=== PATIENT | male | born 1960 | race Two or more races ===

== ENCOUNTER 2017-12-15 00:28 | Inpatient (IN) | payer OTHER ==
[~2017-12-15] VITALS: Ht 175.3 cm; Wt 80.0 kg
[2017-12-15 00:37] VITALS: Ht 175.3 cm; Wt 80.0 kg
[2017-12-15 01:23] LABS: BASOPHIL % 0.6 % (0-2); PLATELET COUNT 350 x10^3mcL (130-400); RED CELL DISTRIBUTION WIDTH 13.8 % (11.5-14.5)
[2017-12-15 01:47] LABS: ALBUMIN 4.2 g/dL (3.4-5.0); BILIRUBIN TOTAL 0.37 mg/dL (0.20-1.00); CALCIUM 9.9 mg/dL (8.5-10.1); CREATININE SERUM 1.9 mg/dL (0.7-1.3); FREE T4 1.65 ng/dL (0.76-1.46); TOTAL PROTEIN, SERUM 8.2 g/dL (6.4-8.2)
[2017-12-15] MEDS ORDERED: LEXAPRO10 MG PO (02:47)
[2017-12-15] MEDS ORDERED: HYDROCHLOROTHIA50 MG PO (02:48)
[2017-12-15] MEDS ORDERED: PANTOPRAZOLE SO40 M1 PO (02:48)
[2017-12-15] MEDS ORDERED: METFORMIN HCL850 MG PO (02:49)
[2017-12-15] MEDS ORDERED: ZANAFLEX CAPSULE4 MG PO (02:51)
[2017-12-15] MEDS ORDERED: HUMALOG100 U/ML SQ (02:53)
[2017-12-15] MEDS ORDERED: FLUTICASON0.05 MG/Ac (02:54)
[2017-12-15] MEDS ORDERED: NOR10 PO (02:55)
[2017-12-15] MEDS ORDERED: TRIAMTERENE AND1 TA1 PO (02:55)
[2017-12-15] MEDS ORDERED: NIASPAN500 MG PO (02:56)
[2017-12-15] MEDS ORDERED: CLARITIN10 MG PO (02:57)
[2017-12-15] MEDS ORDERED: LATUDA40 M1 PO (02:57)
[2017-12-15] MEDS ORDERED: LANTUS SOLOS100 U/M1 SQ (02:58)
[2017-12-15] MEDS ORDERED: JANUVIA100 M1 PO (02:59)
[2017-12-15] MEDS ORDERED: NATURAL IRON65 MG PO (03:00)
[2017-12-15] MEDS ORDERED: CLOPIDOGREL75 M1 PO (03:01)
[2017-12-15] MEDS ORDERED: CARVEDILOL3.125 M1 PO (03:02)
[2017-12-15] MEDS ORDERED: BENAZEPRIL HYDR20 M1 PO (03:15)
[2017-12-15] MEDS ORDERED: BENAZEPRIL HYDR40 M1 PO (03:15)
[2017-12-15] MEDS ORDERED: TRAMADOL HCL50 MG PO (03:16)
[2017-12-15] MEDS ORDERED: ISOSORBIDE MONO30 MG PO (03:16)
[2017-12-15] MEDS ORDERED: ATORVASTATIN CA40 M1 PO (03:17)
[2017-12-15] MEDS ORDERED: LINZESS290 MCG PO (03:17)
[2017-12-15] MEDS ORDERED: RESTORIL15 MG PO (03:18)
[2017-12-15] MEDS ORDERED: GOOD SENSE ASP325 MG PO (03:18)
[2017-12-15] MEDS ORDERED: MAXZIDE1 TAB PO (03:25)
[2017-12-15 03:26] LABS: PHOSPHOROUS 3.6 mg/dL (2.5-4.9)
[2017-12-15] MEDS ORDERED: IBUPROFEN400 MG PO (03:26)
[2017-12-15] MEDS ORDERED: IBU800 M2 PO (03:31)
[2017-12-15 04:13] VITALS: BP 123/73
[2017-12-15 07:26] LABS: microscopic required? NO
[2017-12-15 09:08] LABS: UA SPECIFIC GRAVITY <=1.005 (1.005-1.035); urine erythrocyte NEGATIVE (NEGATIVE)
[2017-12-15 09:14] LABS: AMPHETAMINE QUAL UR NONE DETECTED (See below)
[2017-12-15 10:00] VITALS: BP 116/63
[2017-12-15 10:45] LABS: T4(THYROXINE) 11.8 ug/dL (4.7-13.3)
[2017-12-15 13:44] VITALS: BP 121/77
[2017-12-15 17:09] VITALS: BP 126/83
[2017-12-15 21:00] VITALS: BP 109/66
[2017-12-16 05:53] VITALS: BP 144/91
[2017-12-16 07:06] LABS: CALCIUM 9.7 mg/dL (8.5-10.1); CARBON DIOXIDE 24.5 mmol/L (21-32); CHLORIDE SERUM 104 mmol/L (98-107); CREATININE SERUM 1.1 mg/dL (0.7-1.3); GFR1 > 60 mL/min; GLUCOSE SERUM 157 mg/dL (74-106); MAGNESIUM 1.9 mg/dL (1.8-2.4); PHOSPHOROUS 2.5 mg/dL (2.5-4.9); POTASSIUM SERUM 3.7 mmol/L (3.5-5.1); SODIUM SERUM 140 mmol/L (136-145)
[2017-12-16 07:11] LABS: BASOPHIL % 0.6 % (0-2); PLATELET COUNT 323 x10^3mcL (130-400); RED CELL DISTRIBUTION WIDTH 13.9 % (11.5-14.5)
[2017-12-16] MEDS ORDERED: FIBER625 MG PO (12:00)
[2017-12-16 12:30] VITALS: BP 145/88
[2017-12-16 12:40] VITALS: BP 150/81
== END 2017-12-16 13:20 | disposition home or self-care (01) | DRG 48 ==
LOC: ED 00:28 → DU 02:32
PROVIDERS: Emergency Medicine; Family Medicine; Internal Medicine Gastroenterology
PROC: 0DB68ZX Excision of Stomach, Via Natural or Artificial Opening Endoscopic, Diagnostic (ICD-10-PCS; principal; 2017-12-16 07:30)
PROC: 0DJD8ZZ Inspection of Lower Intestinal Tract, Via Natural or Artificial Opening Endoscopic (ICD-10-PCS; 2017-12-16 07:30)
DX: G90.9 Disorder of the autonomic nervous system, unspecified (principal); N17.0 Acute kidney failure with tubular necrosis; E87.8 Other disorders of electrolyte and fluid balance, not elsewhere classified; E11.65 Type 2 diabetes mellitus with hyperglycemia; I95.9 Hypotension, unspecified; I48.92 Unspecified atrial flutter; E87.1 Hypo-osmolality and hyponatremia; F33.1 Major depressive disorder, recurrent, moderate; I10 Essential (primary) hypertension; I25.10 Atherosclerotic heart disease of native coronary artery without angina pectoris; F17.210 Nicotine dependence, cigarettes, uncomplicated; R55 Syncope and collapse; K59.00 Constipation, unspecified; G89.29 Other chronic pain; F41.1 Generalized anxiety disorder; E87.6 Hypokalemia; E05.90 Thyrotoxicosis, unspecified without thyrotoxic crisis or storm; M54.9 Dorsalgia, unspecified; D64.9 Anemia, unspecified; E66.9 Obesity, unspecified; E78.5 Hyperlipidemia, unspecified; K21.9 Gastro-esophageal reflux disease without esophagitis; K64.8 Other hemorrhoids; Z95.5 Presence of coronary angioplasty implant and graft; Z68.26 Body mass index [BMI] 26.0-26.9, adult
CPT/HCPCS: 43235; 45378; 82962; 83880; 84439; 97535-GP; J1200; J1610; J1815; J2250; J2310; J3010; J3480; J3490; J7030; Q0092

== ENCOUNTER 2018-09-28 19:07 | Inpatient (IN) | payer OTHER ==
[~2018-09-28] VITALS: Ht 175.3 cm; Wt 90.9 kg
[~2018-09-28 19:07] MED LIST: ATORVASTATIN CA40 M1 PO; BENAZEPRIL HYDR20 M1 PO; BENAZEPRIL HYDR40 M1 PO; CARVEDILOL3.125 M1 PO; CLARITIN10 MG PO; CLOPIDOGREL75 M1 PO; FIBER625 MG PO; FLUTICASON0.05 MG/Ac; GOOD SENSE ASP325 MG PO; HUMALOG100 U/ML SQ; HYDROCHLOROTHIA50 MG PO; IBU800 M2 PO; IBUPROFEN400 MG PO; ISOSORBIDE MONO30 MG PO; JANUVIA100 M1 PO; LANTUS SOLOS100 U/M1 SQ; LATUDA40 M1 PO; LEXAPRO10 MG PO; LINZESS290 MCG PO; MAXZIDE1 TAB PO; METFORMIN HCL850 MG PO; NATURAL IRON65 MG PO; NIASPAN500 MG PO; NOR10 PO; PANTOPRAZOLE SO40 M1 PO; RESTORIL15 MG PO; TRAMADOL HCL50 MG PO; TRIAMTERENE AND1 TA1 PO; ZANAFLEX CAPSULE4 MG PO
[2018-09-28 20:01] LABS: BASOPHIL % 0.3 % (0-2); PLATELET COUNT 309 x10^3mcL (130-400); RED CELL DISTRIBUTION WIDTH 13.3 % (11.5-14.5)
[2018-09-28 20:22] LABS: CALCIUM 9.6 mg/dL (8.5-10.1); CARBON DIOXIDE 22.1 mmol/L (21-32); CREATININE SERUM 1.7 mg/dL (0.7-1.3); POTASSIUM SERUM 3.2 mmol/L (3.5-5.1)
[2018-09-28 20:27] LABS: ALBUMIN 3.6 g/dL (3.4-5.0); BILIRUBIN TOTAL 0.21 mg/dL (0.20-1.00); TOTAL PROTEIN, SERUM 7.3 g/dL (6.4-8.2)
[2018-09-28] MEDS ORDERED: LINZESS290 MCG (21:05)
[2018-09-28] MEDS ORDERED: JANUVIA100 M1 (21:05)
[2018-09-28 21:45] LABS: CHOLESTEROL/HDL RATIO 3.7; MAGNESIUM 2.1 mg/dL (1.8-2.4); PHOSPHOROUS 2.8 mg/dL (2.5-4.9)
[2018-09-28 21:46] LABS: microscopic required? NO
[2018-09-28 22:05] LABS: UA SPECIFIC GRAVITY 1.015 (1.005-1.035); urine erythrocyte NEGATIVE (NEGATIVE)
[2018-09-28 22:27] LABS: AMPHETAMINE QUAL UR NONE DETECTED (See below)
[2018-09-28 23:02] VITALS: BP 114/70
[2018-09-28 23:22] VITALS: Ht 175.3 cm; Wt 90.9 kg
[2018-09-29 05:51] VITALS: BP 107/64
[2018-09-29 07:32] LABS: CALCIUM 8.9 mg/dL (8.5-10.1); CREATININE SERUM 1.5 mg/dL (0.7-1.3); MAGNESIUM 2.2 mg/dL (1.8-2.4); PHOSPHOROUS 2.4 mg/dL (2.5-4.9); POTASSIUM SERUM 3.5 mmol/L (3.5-5.1)
[2018-09-29 07:40] LABS: BASOPHIL % 0.3 % (0-2); PLATELET COUNT 281 x10^3mcL (130-400); RED CELL DISTRIBUTION WIDTH 13.7 % (11.5-14.5)
[2018-09-29 09:05] VITALS: BP 115/62
[2018-09-29] MEDS ORDERED: DEPAKOTE500 MG PO (13:23)
[2018-09-29] MEDS ORDERED: ZYPREXA10 M1 PO (13:51)
[2018-09-29 15:33] VITALS: BP 129/66
== END 2018-09-29 16:14 | disposition home or self-care (01) | DRG 48 ==
LOC: ED 19:07 → DU 20:59 → MU 20:59 → DU 23:00
PROVIDERS: Emergency Medicine; ADMIT Internal Medicine
DX: G90.8 Other disorders of autonomic nervous system (principal); N17.0 Acute kidney failure with tubular necrosis; E86.0 Dehydration; E87.1 Hypo-osmolality and hyponatremia; E78.5 Hyperlipidemia, unspecified; E11.65 Type 2 diabetes mellitus with hyperglycemia; E87.6 Hypokalemia; I10 Essential (primary) hypertension; D53.9 Nutritional anemia, unspecified; Z79.4 Long term (current) use of insulin; Z68.29 Body mass index [BMI] 29.0-29.9, adult; F17.210 Nicotine dependence, cigarettes, uncomplicated; Z95.5 Presence of coronary angioplasty implant and graft; Z79.84 Long term (current) use of oral hypoglycemic drugs; E78.00 Pure hypercholesterolemia, unspecified; K21.9 Gastro-esophageal reflux disease without esophagitis
CPT/HCPCS: 82962; J7030; Q0092

== ENCOUNTER 2018-09-30 12:14 | Inpatient (IN) | payer OTHER ==
[~2018-09-30] VITALS: Ht 175.3 cm; Wt 88.5 kg
[~2018-09-30 12:14] MED LIST changes: +DEPAKOTE500 MG PO; +JANUVIA100 M1; +LINZESS290 MCG; +ZYPREXA10 M1 PO
[2018-09-30 12:23] VITALS: Ht 175.3 cm; Wt 88.5 kg
[2018-09-30 13:38] LABS: BASOPHIL % 0.4 % (0-2); PLATELET COUNT 297 x10^3mcL (130-400); RED CELL DISTRIBUTION WIDTH 13.8 % (11.5-14.5)
[2018-09-30 13:41] LABS: ALBUMIN 3.4 g/dL (3.4-5.0); BILIRUBIN TOTAL 0.24 mg/dL (0.20-1.00); CALCIUM 9.5 mg/dL (8.5-10.1); CARBON DIOXIDE 24.2 mmol/L (21-32); CREATININE SERUM 1.5 mg/dL (0.7-1.3); TOTAL PROTEIN, SERUM 7.1 g/dL (6.4-8.2)
[2018-09-30 13:51] LABS: AMPHETAMINE QUAL UR NONE DETECTED (See below)
[2018-09-30 15:36] LABS: microscopic required? NO
[2018-09-30 15:37] LABS: MAGNESIUM 2.1 mg/dL (1.8-2.4); PHOSPHOROUS 2.2 mg/dL (2.5-4.9)
[2018-09-30 15:43] LABS: CHOLESTEROL/HDL RATIO 3.9
[2018-09-30 16:10] LABS: UA SPECIFIC GRAVITY <=1.005 (1.005-1.035); urine erythrocyte NEGATIVE (NEGATIVE)
[2018-09-30 17:52] VITALS: BP 151/87
[2018-09-30 22:45] VITALS: BP 130/71
[2018-10-01 05:40] VITALS: BP 118/62
[2018-10-01 06:42] LABS: LIPASE 303 IU/L (73-393)
[2018-10-01 06:47] LABS: CALCIUM 8.8 mg/dL (8.5-10.1); CARBON DIOXIDE 28.4 mmol/L (21-32); CREATININE SERUM 1.4 mg/dL (0.7-1.3); MAGNESIUM 2.1 mg/dL (1.8-2.4); PHOSPHOROUS 3.1 mg/dL (2.5-4.9)
[2018-10-01 07:09] LABS: AMYLASE 124 U/L (25-115)
[2018-10-01 07:16] LABS: POTASSIUM SERUM 2.7 mmol/L (3.5-5.1)
[2018-10-01 07:17] LABS: BASOPHIL % 0.6 % (0-2); PLATELET COUNT 262 x10^3mcL (130-400); RED CELL DISTRIBUTION WIDTH 13.9 % (11.5-14.5)
[2018-10-01 10:12] VITALS: BP 155/91
[2018-10-01 13:02] VITALS: BP 114/71
[2018-10-01 18:22] VITALS: BP 132/78
[2018-10-01 21:02] VITALS: BP 107/77; BP 141/85
[2018-10-02 06:11] VITALS: BP 143/89
[2018-10-02 06:52] LABS: BASOPHIL % 0.5 % (0-2); PLATELET COUNT 298 x10^3mcL (130-400)
[2018-10-02 07:09] LABS: CALCIUM 9.2 mg/dL (8.5-10.1); CREATININE SERUM 1.4 mg/dL (0.7-1.3); PHOSPHOROUS 3.2 mg/dL (2.5-4.9); POTASSIUM SERUM 3.4 mmol/L (3.5-5.1)
[2018-10-02 09:09] VITALS: BP 137/89
[2018-10-02 16:39] VITALS: BP 135/76
[2018-10-02 21:17] VITALS: BP 143/84
[2018-10-02 23:42] VITALS: BP 143/84
== END 2018-10-03 01:20 | disposition short-term general hospital (02) | DRG 190 ==
LOC: ED 12:14 → DU 15:05
PROVIDERS: Emergency Medicine; ADMIT General Practice
DX: I21.4 Non-ST elevation (NSTEMI) myocardial infarction (principal); N17.0 Acute kidney failure with tubular necrosis; R56.9 Unspecified convulsions; E11.9 Type 2 diabetes mellitus without complications; G90.8 Other disorders of autonomic nervous system; F31.9 Bipolar disorder, unspecified; E78.5 Hyperlipidemia, unspecified; I10 Essential (primary) hypertension; E87.6 Hypokalemia; I25.10 Atherosclerotic heart disease of native coronary artery without angina pectoris; F17.210 Nicotine dependence, cigarettes, uncomplicated; Z79.4 Long term (current) use of insulin; Z79.82 Long term (current) use of aspirin; Z68.28 Body mass index [BMI] 28.0-28.9, adult; Z95.5 Presence of coronary angioplasty implant and graft; Z79.84 Long term (current) use of oral hypoglycemic drugs; E78.00 Pure hypercholesterolemia, unspecified; E83.39 Other disorders of phosphorus metabolism; E87.1 Hypo-osmolality and hyponatremia
CPT/HCPCS: 82962; 83880; J1642; J1644; J1953; J3480; J7030; Q0092

== ENCOUNTER 2018-10-08 14:52 | Inpatient (IN) | payer OTHER ==
[~2018-10-08] VITALS: Ht 175.3 cm; Wt 87.5 kg
[2018-10-08 16:52] LABS: BASOPHIL % 0.2 % (0-2); PLATELET COUNT 355 x10^3mcL (130-400); RED CELL DISTRIBUTION WIDTH 13.9 % (11.5-14.5)
[2018-10-08 17:23] LABS: ALBUMIN 3.5 g/dL (3.4-5.0); BILIRUBIN TOTAL 0.4 mg/dL (0.20-1.00); CALCIUM 9.7 mg/dL (8.5-10.1); CARBON DIOXIDE 19.9 mmol/L (21-32); CREATININE SERUM 1.6 mg/dL (0.7-1.3); POTASSIUM SERUM 3.9 mmol/L (3.5-5.1); TOTAL PROTEIN, SERUM 8.2 g/dL (6.4-8.2)
[2018-10-08 17:45] LABS: microscopic required? NO
[2018-10-08 17:53] LABS: urine erythrocyte NEGATIVE (NEGATIVE)
[2018-10-08 18:54] LABS: CHOLESTEROL/HDL RATIO 3.4; MAGNESIUM 2.1 mg/dL (1.8-2.4); PHOSPHOROUS 3.8 mg/dL (2.5-4.9)
[2018-10-08 19:00] LABS: FREE T4 1.46 ng/dL (0.76-1.46); FREE THYROXINE INDEX 3.7 ug/dL (1.4-4.5); T4(THYROXINE) 11.7 ug/dL (4.7-13.3)
[2018-10-08 19:05] LABS: T3 TOTAL 1.05 ng/mL
[2018-10-08 21:27] VITALS: BP 135/71
[2018-10-08 21:34] VITALS: Ht 175.3 cm; Wt 87.5 kg
[2018-10-08] MEDS ORDERED: BACLOFEN10 MG PO (22:58)
[2018-10-08] MEDS ORDERED: KROGER NIC21 MG/24 H TD (22:59)
[2018-10-08] MEDS ORDERED: LINZESS290 MCG PO (23:02)
[2018-10-08] MEDS ORDERED: FENOFIBRATE145 M1 PO (23:06)
[2018-10-08] MEDS ORDERED: LANTUS SOLOS100 U/M1 SQ (23:19)
[2018-10-08] MEDS ORDERED: GLUCOTROL10 MG PO (23:22)
[2018-10-09 06:08] VITALS: BP 151/86
[2018-10-09 06:21] LABS: BASOPHIL % 0.1 % (0-2); PLATELET COUNT 319 x10^3mcL (130-400); RED CELL DISTRIBUTION WIDTH 14.1 % (11.5-14.5)
[2018-10-09 06:55] LABS: CALCIUM 9.6 mg/dL (8.5-10.1); CARBON DIOXIDE 23.6 mmol/L (21-32); CREATININE SERUM 1.4 mg/dL (0.7-1.3); MAGNESIUM 2.2 mg/dL (1.8-2.4); PHOSPHOROUS 4.1 mg/dL (2.5-4.9); POTASSIUM SERUM 3.6 mmol/L (3.5-5.1)
[2018-10-09 09:13] VITALS: BP 122/69
[2018-10-09 12:40] VITALS: BP 134/81
[2018-10-09 17:29] VITALS: BP 154/83
[2018-10-09 20:26] VITALS: BP 126/75
[2018-10-10 05:19] VITALS: BP 146/81
[2018-10-10 06:28] LABS: PLATELET COUNT 342 x10^3mcL (130-400); RED CELL DISTRIBUTION WIDTH 13.8 % (11.5-14.5)
[2018-10-10 06:51] LABS: BASOPHIL % 0 % (0-2)
[2018-10-10 06:57] LABS: CALCIUM 9.2 mg/dL (8.5-10.1); CARBON DIOXIDE 22.7 mmol/L (21-32); CREATININE SERUM 1.5 mg/dL (0.7-1.3); MAGNESIUM 1.9 mg/dL (1.8-2.4); PHOSPHOROUS 2.8 mg/dL (2.5-4.9); POTASSIUM SERUM 3.3 mmol/L (3.5-5.1)
[2018-10-10 09:00] VITALS: BP 142/75
[2018-10-10 13:36] VITALS: BP 134/74
[2018-10-10 17:24] VITALS: BP 174/83
[2018-10-10 18:09] LABS: CALCIUM 9.4 mg/dL (8.5-10.1); CARBON DIOXIDE 22.7 mmol/L (21-32); CREATININE SERUM 1.5 mg/dL (0.7-1.3); POTASSIUM SERUM 3.7 mmol/L (3.5-5.1)
[2018-10-10 21:18] VITALS: BP 147/78
[2018-10-11] VITALS (7 sets, daily range): BP systolic 141–170; BP diastolic 77–89
[2018-10-11 06:31] LABS: CARBON DIOXIDE 24.1 mmol/L (21-32); CHLORIDE SERUM 92 mmol/L (98-107); CREATININE SERUM 1.3 mg/dL (0.7-1.3); GFR1 > 60 mL/min; GLUCOSE SERUM 196 mg/dL (74-106); POTASSIUM SERUM 3.6 mmol/L (3.5-5.1); SODIUM SERUM 128 mmol/L (136-145)
[2018-10-11 06:58] LABS: PLATELET COUNT 392 x10^3mcL (130-400); RED CELL DISTRIBUTION WIDTH 14.1 % (11.5-14.5)
[2018-10-11 07:00] LABS: BASOPHIL % 0 % (0-2)
[2018-10-11] MEDS ORDERED: LOTENSIN40 MG PO (07:19)
[2018-10-11] MEDS ORDERED: SAMSCA15 MG PO (07:20)
[2018-10-12 05:33] VITALS: BP 154/87
[2018-10-12 07:07] LABS: CREATININE SERUM 1.4 mg/dL (0.7-1.3); POTASSIUM SERUM 3.8 mmol/L (3.5-5.1)
[2018-10-12 07:08] LABS: RED CELL DISTRIBUTION WIDTH 14.3 % (11.5-14.5)
[2018-10-12 07:21] LABS: BASOPHIL % 0 % (0-2); PLATELET COUNT 451 x10^3mcL (130-400)
[2018-10-12 08:52] VITALS: BP 133/80
[2018-10-12 13:29] VITALS: BP 172/91
[2018-10-12 16:27] VITALS: BP 136/83
[2018-10-12 19:20] VITALS: BP 155/77
[2018-10-13 04:13] LABS: BASOPHIL % 0 % (0-2); PLATELET COUNT 454 x10^3mcL (130-400); RED CELL DISTRIBUTION WIDTH 14.7 % (11.5-14.5)
[2018-10-13 04:18] LABS: CALCIUM 9.2 mg/dL (8.5-10.1); CARBON DIOXIDE 26.9 mmol/L (21-32); CREATININE SERUM 1.5 mg/dL (0.7-1.3); POTASSIUM SERUM 3.1 mmol/L (3.5-5.1)
[2018-10-13 06:41] VITALS: BP 128/65
[2018-10-13 07:48] VITALS: BP 133/79
[2018-10-13 13:19] VITALS: BP 130/71
[2018-10-13 16:34] VITALS: BP 130/71
[2018-10-13 16:53] VITALS: BP 130/71
== END 2018-10-13 17:35 | disposition short-term general hospital (02) | DRG 426 ==
LOC: ED 14:52 → DU 17:51
PROVIDERS: Emergency Medicine; Internal Medicine; ADMIT Family Medicine
PROC: 0R9K3ZZ Drainage of Left Shoulder Joint, Percutaneous Approach (ICD-10-PCS; principal; 2018-10-11)
DX: E22.2 Syndrome of inappropriate secretion of antidiuretic hormone (principal); N17.0 Acute kidney failure with tubular necrosis; G93.40 Encephalopathy, unspecified; M00.9 Pyogenic arthritis, unspecified; E86.0 Dehydration; F31.9 Bipolar disorder, unspecified; E11.65 Type 2 diabetes mellitus with hyperglycemia; E78.00 Pure hypercholesterolemia, unspecified; I25.10 Atherosclerotic heart disease of native coronary artery without angina pectoris; Z98.61 Coronary angioplasty status; F17.200 Nicotine dependence, unspecified, uncomplicated; E78.5 Hyperlipidemia, unspecified; I12.9 Hypertensive chronic kidney disease with stage 1 through stage 4 chronic kidney disease, or unspecified chronic kidney disease; E11.22 Type 2 diabetes mellitus with diabetic chronic kidney disease; N18.9 Chronic kidney disease, unspecified; G89.29 Other chronic pain; E87.6 Hypokalemia; M25.519 Pain in unspecified shoulder; T50.995A Adverse effect of other drugs, medicaments and biological substances, initial encounter; Y92.89 Other specified places as the place of occurrence of the external cause
CPT/HCPCS: 82962; 83880; 84439; J2001; J2543; J3370; J7030; Q0092; Q9967

== ENCOUNTER 2018-10-25 21:54 | Emergency (ER) | payer OTHER ==
[~2018-10-25] VITALS: Ht 175.3 cm; Wt 85.7 kg
[~2018-10-25 21:54] MED LIST changes: +BACLOFEN10 MG PO; +FENOFIBRATE145 M1 PO; +GLUCOTROL10 MG PO; +KROGER NIC21 MG/24 H TD; +LOTENSIN40 MG PO; +SAMSCA15 MG PO
[2018-10-25 22:01] VITALS: Ht 175.3 cm; Wt 85.7 kg
[2018-10-25 23:58] VITALS: BP 144/97
== END 2018-10-25 23:58 | disposition home or self-care (01) ==
LOC: ED 21:54
DX: R04.0 Epistaxis (principal); I10 Essential (primary) hypertension; E11.9 Type 2 diabetes mellitus without complications; F31.9 Bipolar disorder, unspecified; E78.00 Pure hypercholesterolemia, unspecified

== ENCOUNTER 2018-10-27 09:45 | Emergency (ER) | payer OTHER ==
[~2018-10-27] VITALS: Ht 175.3 cm; Wt 85.7 kg
[2018-10-27 09:50] VITALS: Ht 175.3 cm; Wt 85.7 kg
[2018-10-27 10:22] VITALS: BP 146/82
== END 2018-10-27 10:22 | disposition home or self-care (01) ==
LOC: ED 09:45
DX: R04.0 Epistaxis (principal); I10 Essential (primary) hypertension; E11.9 Type 2 diabetes mellitus without complications; E78.00 Pure hypercholesterolemia, unspecified; F31.9 Bipolar disorder, unspecified

== ENCOUNTER 2018-11-03 18:45 | Inpatient (IN) | payer MEDICAID ==
[~2018-11-03] VITALS: Ht 175.3 cm; Wt 89.4 kg
--- NOTE | 2018-11-03 18:58 | NUR ---
PT SENT TO LOBBY TO WAIT FOR AVAILABLE BED. NO DISTRESS AND PT IS ALERT AND ORIENTED AT THIS TIME
--- NOTE | 2018-11-03 19:33 | NUR ---
PT PRESENTS TO ED WITH C/O GENERALIZED WEAKNESS, DROWSINESS, AND CONFUSION X2 DAYS. PER PT FAMILY MEMBER, PT HAS BEEN IN AND OUT OF THE HOSPITAL FOR THE LAST MONTH AFTER HAVING A CARDIAC STENT PLACED AND AN INFECTION TO L SHOULDER. PT HAS A HOME PICC LINE THAT HE HAS BEEN RECIEVING ABX THERAPY FOR ABOUT 2 WKS. PT FAMILY STATES THAT OVER THE LAST 2 DAYS HE HAS BECOME GRADUALLY MORE WEAK, DROWSY, AND CONFUSED. PT FAMILY STATES THAT HOME HEALTH NURSE CALLED TO ALERT THEM OF CRITICAL LAB RESULTS. RBC 2.37, GLUCOSE 42, CO2 19, HGB 7.7, HCT 25.5. PT HOME HEALTH NURSE TOLD THEM THAT THEY NEEDED TO COME TO THE ER SOON POSSIBLE. PT FAMILY MEMBER STATES THAT PT WILL WALK AROUND THE HOUSE AND EAT WHEN WOKEN UP AND TOLD TO, BUT WILL SLEEP OTHERWISE. PT RESTING WITH EYES CLOSED AT THIS TIME. PT NOTED WITH BILATERAL LEG SWELLING WHICH FAMILY STATES IS ABNORMAL. PT RESP EVEN AND UNLABORED AT THIS TIME WAKES EASILY TO VERBAL AND TACTILE STIMULI. BG 157 AT THIS TIME. PT PLACED ON TOOL DESIGN CHECKER.
--- NOTE | 2018-11-03 19:55 | NUR ---
PT AMBULATED WITH STEADY GAIT TO RESTROOM TO PROVIDE URINE SPECIMEN.
--- NOTE | 2018-11-03 20:29 | NUR ---
DR LOO AT BEDSIDE FOR EXAM/INTERVIEW.
--- NOTE | 2018-11-03 21:12 | NUR ---
PT RESTING IN BED WITH EYES CLOSED, BREATHS EVEN AND UNLABORED. FAMILY AT BEDSIDE.
[2018-11-03 21:27] LABS: microscopic required? NO
[2018-11-03 21:29] LABS: BASOPHIL % 0.5 % (0-2); PLATELET COUNT 373 x10^3mcL (130-400)
[2018-11-03 21:33] LABS: RED CELL DISTRIBUTION WIDTH 16.1 % (11.5-14.5)
[2018-11-03 21:43] LABS: UA SPECIFIC GRAVITY <=1.005 (1.005-1.035); urine erythrocyte NEGATIVE (NEGATIVE)
[2018-11-03 21:44] LABS: ALBUMIN 2.3 g/dL (3.4-5.0); BILIRUBIN TOTAL 0.1 mg/dL (0.20-1.00); CALCIUM 8.8 mg/dL (8.5-10.1); CREATININE SERUM 1.5 mg/dL (0.7-1.3); TOTAL PROTEIN, SERUM 7.3 g/dL (6.4-8.2)
--- NOTE | 2018-11-03 22:10 | NUR ---
PT RESTING IN BED WITH FAMILY MEMBER AT BEDSIDE FOR ASSISTANCE. NO SIGNS OF DISTRESS AT THIS TIME. EYES CLOSED WITH BREATHS EVEN AND UNLABORED.
--- NOTE | 2018-11-03 22:35 | NUR ---
PT SITTING UP ON EDGE OF BED AFTER AMBULATING TO RESTROOM. FAMILY AT BEDSIDE FOR ASSISTANCE.
--- NOTE | 2018-11-03 23:36 | NUR ---
PT RESTING IN BED AFTER USING RESTROOM WITH ASSISTANCE FROM FAMILY MEMBER. NO SIGNS OF DISTRESS AT THIS TIME.
--- NOTE | 2018-11-03 23:44 | NUR ---
REPORT GIVEN TO PATI ALONSO.
[2018-11-03 23:49] LABS: CHOLESTEROL/HDL RATIO 4.7; MAGNESIUM 1.8 mg/dL (1.8-2.4); PHOSPHOROUS 4.4 mg/dL (2.5-4.9)
[2018-11-04] VITALS (8 sets, daily range): BP systolic 101–125; BP diastolic 50–76; Ht 175.3 cm; Wt 89.4 kg
--- NOTE | 2018-11-04 | NUR ---
RECEIVED PT FROM ED VIA ALEXYS, CAME IN DUE TO WEAKNESS. AAOX4, SLOW TO RESPOND AT TIMES AND HAS MILD CONFUSION AT TIMES. ABLE TO FOLLOW COMMANDS. SPEECH IS CLEAR. NO FACIAL DROOP NOTED. NO SOB, LUNG SOUNDS CTA. DENIES CHEST PAIN/PRESSURE, SR ON THE MONITOR. DENIES ABDOMINAL DISCOMFORT. BOWEL SOUNDS ACTIVE. VOIDS. W/ SWELLING ON THE LEFT HAND AND DRY SCABS ON THE LEFT SHOULDER, SILVINO. W/ DOUBLE LUMEN PICC LINE ON THE RUE, DRESSING CDI. LIMITED ROM ON LUE, C/O 8/10 ACHING PAIN ON LUE. CANE AT BEDSIDE. RECEIVED PT FROM ED W/ ANCEF ONGOING. AT BEDSIDE. PADDED SIDE RAILS UPX2. CALL LIGHT ON REACH. HOB ELEVATED AT 30 DEG. PRIMARY NURSE PATI AT BEDSIDE FOR CONTINUITY OF CARE
[2018-11-04 00:14] LABS: FREE T4 1.46 ng/dL (0.76-1.46); FREE THYROXINE INDEX 3.4 ug/dL (1.4-4.5); T4(THYROXINE) 9.2 ug/dL (4.7-13.3)
[2018-11-04 00:36] LABS: T3 TOTAL 1.22 ng/mL
--- NOTE | 2018-11-04 00:47 | NUR ---
RANDOM BS CHECKED @ 152 MG/DL ON ADMISSION.OBTAINED CONSENT FOR BLOOD TRANSFUSION FROM -LAURA SEBASTIAN.MEDICATED WITH NORCO 7.5 MG PO REQUESTED.WILL CONTINUE TO MONITOR.
--- NOTE | 2018-11-04 02:00 | NUR ---
1 UNIT PRBC STARTED WITNESS BY ANOTHER NURSE.BLOOD # [id number].PREMEDICATED WITH TYLENOL AND BENADRYL 25 MG PO ORDERED.BP 107/60 MMHG,HR 89,O2 SAT @ 100%.TEMP 97.7F.WILL CONTINUE TO MONITOR.
[2018-11-04] MEDS ORDERED: ZESTRIL40 MG PO (02:01)
[2018-11-04] MEDS ORDERED: NOR10 PO (02:04)
[2018-11-04] MEDS ORDERED: CHLORTHALIDONE25 MG PO (02:05)
--- NOTE | 2018-11-04 02:15 | NUR ---
NO ADVERSE REACTION NOTED.TOLERATING BLOOD TRANSFUSION WELL.BP 116/60 MMHG,HR 84,O2 SAT @ 98% TEMP 98.5F.WILL CONTINUE TO MONITOR.
--- NOTE | 2018-11-04 04:27 | NUR ---
I UNIT PRBC COMPLETED.NO ADVERSE REACTION NOTED/BP 109/71 MMHG,HR 80,TEMP 97.0F,O2 SAT @ 96%.DUE MEDS GIVEN ORDERED.WILL CONTINUE TO MONITOR.
[2018-11-04 06:19] LABS: BASOPHIL % 0.8 % (0-2); PLATELET COUNT 354 x10^3mcL (130-400)
--- NOTE | 2018-11-04 06:37 | NUR ---
ANCEF 2 GM IVPB STARTED.BS THIS AM @ 119 MG/DL.NO ADVERSE LATE REACTION FROM BLOOD TRANSFUSION GIVEN EARLIER.ALL NEEDS MET.WILL CONTINUE TO MONITOR.
[2018-11-04 06:42] LABS: CARBON DIOXIDE 29.3 mmol/L (21-32); CREATININE SERUM 1.4 mg/dL (0.7-1.3); POTASSIUM SERUM 3.6 mmol/L (3.5-5.1)
[2018-11-04 06:46] LABS: RED CELL DISTRIBUTION WIDTH 15.9 % (11.5-14.5)
--- NOTE | 2018-11-04 07:30 | NUR ---
PT IS AAOX4. FOLLOWS COMMANDS, VERBALLY RESPONSIVE. NO SIGNS OF CONFUSION AT THIS TIME. RESP EVEN AND UNLABORED. LUNG SOUNDS CTA, ON R/A. TELE [address] READING NSR. ABDOMEN ROUND, NONTENDER, NONDISTENDED. BOWEL SOUNDS ACTIVE X4. SKIN CDI, PERIPHERAL PULSES PALPABLE. NO EDEMA NOTED. PICC LINE IN PLACE TO DIVYA COVERED WITH OCCLUSIVE DRESSING, CDI. NO S/S OF INFECTION NOTED. 2 PORTS FLUSHED AND PATENT. PT DENIES PAIN AT THIS TIME. CALL LIGHT WITHIN REACH. BED IN LOWEST POSITION. AT BEDSIDE.
--- NOTE | 2018-11-04 09:00 | NUR ---
REPORTED TO DEANN ONTIVEROS NP THAT PT'S HIDA SCAN WILL NEED TO BE ORDER FROM OUTSIDE. DEANN REQUESTED TO GO AHEAD WITH ORDER OF HIDA SCAN FROM OUTSIDE AND TO MAKE VELMA ALONSO AWARE. REPORTED TO VELMA SALAZAR. MARTIN STATE SHE WILL FOLLOW THROUGH WITH THE REQUEST. MADE DEANN AWARE THAT MARTIN HAD BEEN CONTACTED AND MADE AWARE.
--- NOTE | 2018-11-04 09:20 | NUR ---
DUE MEDS GIVEN. LANTUS HELD DUE TO PT NPO FOR POSSIBLE PROCEDURE. PLAVIX, ASA AND TYLENOL HELD DUE TO POSSIBLE PROCEDURE. B/P 118/77 (85), HR 92. PT STATES HIS L ARM IN UNCOMFORTABLE BUT WOULD LIKE TO WAIT BEFORE TAKING ANY PAIN MEDICATION. AT BEDSIDE. CALL LIGHT WITHIN REACH.
--- NOTE | 2018-11-04 10:15 | NUR ---
BLOOD SUGAR TAKEN DUE TO ROUTINE INSULIN BEING HELD. PT'S BS= 133. NO INSULIN NEEDED AT THIS TIME. PT ASSISTED TO BEDSIDE CHAIR. DENIES PAIN AT THIS TIME. CALL LIGHT WITHIN REACH. IN ROOM.
--- NOTE | 2018-11-04 12:48 | NUR ---
DUE MEDS GIVEN. BLOOD SUGAR 185, 3 UNITS REG INSULIN GIVEN. PT TAUGHT THAT A STOOL SAMPLE IS NEEDED AND NOT TO FLUSH ANY BOWEL MOVEMENT, TO USE HAT IN TOILET INSTEAD. PT VERBALIZED UNDERSTANDING. CALL LIGHT WITHIN REACH. AT BEDSIDE.
[2018-11-04 13:04] LABS: TOTAL IRON BINDING CAPACITY 354 ug/dL (250-450)
[2018-11-04 13:05] LABS: IRON 25 ug/dL (65-170)
[2018-11-04 13:19] LABS: RED BLOOD CELLS 2.73 M/mm3 (4.52-5.90)
--- NOTE | 2018-11-04 13:33 | NUR ---
LANTUS 30 UNITS GIVEN, WAS HELD EARLIER DUE TO PT'S NPO STATUS. DR. LAWSON AWARE LANTUS WILL BE GIVEN. PT HAS DIET ORDER AND LUNCH IS AT THE BEDSIDE. DUE MED GIVEN. PT DENIES PAIN AT THIS TIME. CALL LIGHT WITHIN REACH. BED IN LOW POSITION.
[2018-11-04] MEDS ORDERED: LINZESS290 MCG PO (14:09)
--- NOTE | 2018-11-04 14:31 | NUR ---
BLOOD TRANSFUSION STARTED. VS: 99.1 F, 85, 124/65, 20 99% ON R/A. PT EDUCATED TO REPORT SWEATING, CHILLS, CHEST PAIN, ITCHING, SOB, H/A, NEW ONSET BACK PAIN, AND N/V. AT BEDSIDE. CALL LIGHT WITHIN REACH. WILL CONTINUE TO MONITOR.
--- NOTE | 2018-11-04 14:39 | NUR ---
NORCO 7.5MG PO GIVEN FOR L SHOULDER PAIN 01/10. FLUIDS ENCOURAGED. PT HAS BLOOD INFUSING AT THIS TIME. NO C/O FEVER, CHILLS, BACK PAIN, ITCHING. AT BESIDE. CALL LIGHT WITHIN REACH.
--- NOTE | 2018-11-04 15:29 | NUR ---
REPORTED TO DR. LAWSON THAT PT HAS CARDIAC DIET, BUT ALSO NEEDS CCHO. RECEIVED ORDER FOR CARDIAC, CCHO DIET. ORDER NOTED AND CARRIED OUT.
--- NOTE | 2018-11-04 16:21 | NUR ---
PT IS SITTING IN BEDSIDE CHAIR. DENIES FEVER, CHILLS, N/V, BACK PAIN, ITCHING. NO DISCOMFORT AT THIS TIME. AT BEDSIDE. CALL LIGHT WITHIN REACH.
--- NOTE | 2018-11-04 18:00 | NUR ---
BLOOD INFUSION COMPLETED. VS: 98.7, 96, 20, 117/71, 95% ON R/A. PT DENIES BACK PAIN, ITCHING, FEVER, CHILLS, N/V. CALL LIGHT WITHIN REACH.
--- NOTE | 2018-11-04 18:33 | NUR ---
LASIX PO GIVEN FOR POST TRANSFUSION. RESP EVEN AND UNLABORED. PT DENIES FEVER, CHILLS, ITCHING, N/V, BACK PAIN. AT BEDSIDE. CALL LIGHT WITHIN REACH.
--- NOTE | 2018-11-04 18:34 | NUR ---
PT IS AAOX4. RESP EVEN AND UNLABORED. NO DISTRESS NOTED. DENIES PAIN AT THIS TIME. SEIZURE PRECAUTIONS IN PLACE. TELE [address] READING NSR. PICC LINE TOR DIVYA 2 PORTS PATENT. SITE WNL. AT BEDSIDE. CALL LIGHT WITHIN REACH. WILL ENDORES ALL CARE TO NOC RN.
--- NOTE | 2018-11-04 19:10 | NUR ---
RECEIVED PT UP ON A RECLINER WITH AT BEDSIDE,MORE AWAKE ALERT AND VERBALLY RESPONSIVE.AZ 10/10 TO L SHOULDER WITH LIMITED MOVEMENT.BP 122/69 MMHG,HR 104.PICC LINE TO DIVYA INTACT AND FLUSHES WELL.WILL CONTINUE TO MONITOR.
[2018-11-04 19:40] LABS: BASOPHIL % 0.4 % (0-2)
[2018-11-04 19:41] LABS: PLATELET COUNT 419 x10^3mcL (130-400); RED CELL DISTRIBUTION WIDTH 16.9 % (11.5-14.5)
--- NOTE | 2018-11-04 22:00 | NUR ---
PAGE [facility]ATE ZACHERY PONCE REGARDIGN PT'S CONCERN WHY GLUCOTROL 10 MG BID HOME MEDS NOT YET RESUMED AND REQUEST FOR L SHOULDER XRAY.AWAITING FOR ORDERS.
--- NOTE | 2018-11-05 04:39 | NUR ---
PT SLEPT WITH INTERVALS.BM X1 TO BLACKISH STOOL SENT TO LAB ORDERED.MEDICATED WITH NORCO 7.5 MG PO X2 FOR L SHOULDER PAIN WITH GOOD RELIEF.NO ASE NOTED FROM ANCEF IV ATB.ALL NEEDS MET.WILL CONTINUE TO MONITOR.
[2018-11-05 06:04] LABS: BASOPHIL % 0.3 % (0-2); PLATELET COUNT 385 x10^3mcL (130-400)
--- NOTE | 2018-11-05 06:21 | NUR ---
PT APPEARS MAD THIS AM ABOUT BLOOD DRAWS VERBALIZING"YOU'RE TAKING TOO MUCH BLOOD FROM ME,THAT'S WHY I WANT TO LEAVE SOON POSSIBLE.INFORMED OF BENEFITS AND ALLOWED TO DRAW FROM PICC LINE.
[2018-11-05 06:37] LABS: CALCIUM 9.3 mg/dL (8.5-10.1); CARBON DIOXIDE 27.5 mmol/L (21-32); CREATININE SERUM 1.4 mg/dL (0.7-1.3); MAGNESIUM 2.1 mg/dL (1.8-2.4); PHOSPHOROUS 3.2 mg/dL (2.5-4.9)
--- NOTE | 2018-11-05 06:42 | NUR ---
ALLOWED NURSE TO TAKE VS.NORCO 7.5 MG PO ADMINISTERED.COMFORT MEASURES RENDERED.WILL CONTINUE TO MONITOR.
[2018-11-05 06:43] VITALS: BP 134/75
[2018-11-05 07:29] LABS: RED CELL DISTRIBUTION WIDTH 16.6 % (11.5-14.5)
--- NOTE | 2018-11-05 07:30 | NUR ---
PT IS AAOX4. PT IS SITTING UP IN BEDSIDE CHAIR. TELE [address] READING NSR. LUNG SOUNDS CTA, ON R/A. NO COUGH OR SOB NOTED. BOWEL SOUNDS ACTIVE, ABDOMEN ROUND, SOFT, NONTENDER. SKIN CDI, NO EDEMA NOTED. PICC LINE TO DIVYA WITH 2 PORTS, BOTH FLUSHED AND PATENT. COVERED WITH OCCLUSIVE DRESSING. NO S/S OF INFECTION. DENIES PAIN AT THIS TIME. CALL LIGHT WITHIN REACH. BED IN LOWEST POSITION. AT BEDSIDE.
[2018-11-05 07:54] VITALS: BP 126/72
--- NOTE | 2018-11-05 09:55 | NUR ---
DR. RODRIGUEZ AND MEDICAL TEAM MET WITH PT AND DISCUSSED POC. AWAITING RESULTS OF STOOL CULTURE. IF WNL PT MAY D/C TO HOME. PT AGREED WITH POC.
--- NOTE | 2018-11-05 11:58 | NUR ---
PT RECEIVED DUE MEDS. INSULIN GIVEN FOR BS OF 371. RESP EVEN AND UNLABORED. NO DISTRESS NOTED. DENIES PAIN. AT BEDSIDE. CALL LIGHT WITHIN REACH.
[2018-11-05 12:18] VITALS: BP 119/78
--- NOTE | 2018-11-05 12:28 | NUR ---
NICODERM PATCH APPLIED TO R SHOULDER. IV FLUIDS REPLENISHED. PT DENIES PAIN OR DISCOMFORT. SISTER AT BEDSIDE VISITING. PT STATES, "I AM FEELING BETTER AFTER I SPOKE WITH MY DAUGHTER YESTERDAY." "I DON'T KNOW WHY I TRIED TO KILL MYSELF." IMPREGNATOR HELPER IN ROOM ON ONE TO ONE SUPERVISION. CALL LIGHT WITHIN REACH.
[2018-11-05 13:11] VITALS: BP 119/78
[2018-11-05] MEDS ORDERED: AMITIZA24 MC1 PO (13:14)
[2018-11-05] MEDS ORDERED: SEN PO (13:15)
--- NOTE | 2018-11-05 14:10 | NUR ---
PT DISCHARED TO HOME IN NO DISTRESS. DISCHARGE INSTRUCTIONS REVEIWED. ALL FORMS SIGNED. TELE 10 REMOVED AND GIVEN BACK TO CAR SALES REPRESENTATIVE. RX GIVEN TO PT. PICC LINE FLUSHED, 2 PORTS PATENT AND CLAMPED. VS: 98.6, 80, 20, 119/78, 96% RA. DENIES PAIN OR DISCOMFORT AT TIME OF DISCHARGED. ALL PERSONAL BELONGINGS TAKEN HOME.
== END 2018-11-05 14:06 | disposition home or self-care (01) | DRG 426 ==
LOC: ED 18:45 → DU 23:07 → EDBEDREQSVC 23:16 → DU 23:54
PROVIDERS: Emergency Medicine; Internal Medicine Gastroenterology; ADMIT Internal Medicine
DX: E22.2 Syndrome of inappropriate secretion of antidiuretic hormone (principal); N17.0 Acute kidney failure with tubular necrosis; E43 Unspecified severe protein-calorie malnutrition; D50.9 Iron deficiency anemia, unspecified; F33.9 Major depressive disorder, recurrent, unspecified; E87.6 Hypokalemia; K59.00 Constipation, unspecified; E78.5 Hyperlipidemia, unspecified; I10 Essential (primary) hypertension; I25.10 Atherosclerotic heart disease of native coronary artery without angina pectoris; E11.65 Type 2 diabetes mellitus with hyperglycemia; Z79.82 Long term (current) use of aspirin; Z79.84 Long term (current) use of oral hypoglycemic drugs; Z95.5 Presence of coronary angioplasty implant and graft
CPT/HCPCS: 82962; 84439; J0690; J1815; J7030; J7040; J7050; P9016; Q0092; Q0163

== ENCOUNTER 2018-11-26 09:03 | Inpatient (IN) | payer OTHER ==
[~2018-11-26] VITALS: Ht 175.3 cm; Wt 88.5 kg
[~2018-11-26 09:03] MED LIST changes: +AMITIZA24 MC1 PO; +CHLORTHALIDONE25 MG PO; +SEN PO; +ZESTRIL40 MG PO
[2018-11-26 09:09] VITALS: Ht 175.3 cm; Wt 88.5 kg
--- NOTE | 2018-11-26 09:32 | NUR ---
PT AWAKE AND ALERT. PT C/O GENERALIZED WEAKNESS, LOSS OF APPETITE, NAUSEA, AND EPIGASTRIC PAIN AND DISTENTION X3 DAYS. NAD. RESP E/U. PT ON FULL CM. PT AWAITING MSE IN POSITION OF COMFORT.
--- NOTE | 2018-11-26 10:02 | NUR ---
PT MEDICATED PER DOCTORS ORDERS
--- NOTE | 2018-11-26 10:04 | NUR ---
PORTABLE ULTRASOUND AT BEDSIDE
[2018-11-26 10:07] LABS: PLATELET COUNT 317 x10^3mcL (130-400)
[2018-11-26 10:10] LABS: RED CELL DISTRIBUTION WIDTH 16.9 % (11.5-14.5)
[2018-11-26 10:15] LABS: CALCIUM 9.6 mg/dL (8.5-10.1); CARBON DIOXIDE 19.2 mmol/L (21-32); POTASSIUM SERUM 3.3 mmol/L (3.5-5.1)
[2018-11-26 10:20] LABS: BILIRUBIN TOTAL 0.4 mg/dL (0.20-1.00); TOTAL PROTEIN, SERUM 7.6 g/dL (6.4-8.2)
[2018-11-26 10:49] LABS: ALBUMIN 2.6 g/dL (3.4-5.0)
--- NOTE | 2018-11-26 11:23 | NUR ---
PT RESTING ON ED GURNEY IN POSTION OF COMFORT. NAD. RESP E/U. AT BEDSIDE. PT ON FULL CM. CALL LIGHT WITHIN REACH.
[2018-11-26] MEDS ORDERED: LINZESS290 MCG PO (11:29)
[2018-11-26] MEDS ORDERED: FLUTICASON0.05 MG/Ac (11:29)
[2018-11-26] MEDS ORDERED: LISINOPRIL40 MG PO (11:29)
[2018-11-26] MEDS ORDERED: CHLORTHALIDONE25 MG PO (11:29)
[2018-11-26 11:30] LABS: BAND NEUTROPHIL 3 % (0-10); BASOPHIL 0 % (0-2); METAMYELOCTE 1 % (0-2); MONOCYTE 8 % (0-7); MYELOCYTE 1 % (0-2); SEGMENTED NEUTROPHILS 82 % (37-75)
[2018-11-26] MEDS ORDERED: NOR10 PO (11:30)
[2018-11-26] MEDS ORDERED: TRICOR145 M1 PO (11:30)
[2018-11-26] MEDS ORDERED: GLIPIZIDE ER10 M1 PO (11:30)
[2018-11-26] MEDS ORDERED: BACLOFEN10 MG PO (11:30)
[2018-11-26 11:31] LABS: rbc morphology (normal/abnorm) ABNORMAL (NORMAL)
[2018-11-26] MEDS ORDERED: PANTOPRAZOLE SO40 M1 PO (11:31)
[2018-11-26] MEDS ORDERED: NICOTINE T7 MG/24 H1 TD (11:31)
[2018-11-26] MEDS ORDERED: HUMALOG100 UNIT/1 SQ (11:32)
[2018-11-26] MEDS ORDERED: DEPAKOTE ER500 MG PO (11:32)
[2018-11-26] MEDS ORDERED: ZYP10 PO (11:32)
[2018-11-26] MEDS ORDERED: FERROUS SULFAT325 M2 PO (11:33)
[2018-11-26] MEDS ORDERED: CLOPIDOGREL75 M1 PO (11:33)
[2018-11-26] MEDS ORDERED: CARVEDILOL6.25 M1 PO (11:33)
[2018-11-26] MEDS ORDERED: LANTUS SOLOS100 U/M1 SQ (11:33)
[2018-11-26] MEDS ORDERED: GOOD SENSE ASPI81 M3 PO (11:34)
[2018-11-26] MEDS ORDERED: ISOSORBIDE MONO30 MG PO (11:34)
[2018-11-26] MEDS ORDERED: LIPITOR40 MG PO (11:34)
[2018-11-26] MEDS ORDERED: MASON NATURAL1000 IU PO (11:35)
--- NOTE | 2018-11-26 12:26 | NUR ---
PT MEDICATED PER DOCTORS ORDERS
[2018-11-26 15:22] VITALS: BP 172/86
--- NOTE | 2018-11-26 15:31 | NUR ---
RECEIVED PT FROM ER, PT ADMIT FOR PANCREATITIS, PT IS A/O X4, VERBAL RESPONSIVE, ABLE TO TELL WHAT HE NEEDS. LUNG SOUND CLEAR BILATERAL, NO COUGH, NO SOB, PT DENY ANY CHEST PAIN OR DISCOMFORT, BOWEL SOUND PRESENT ALL 4 QUADRANTS, HYPOACTIVE, DISTENTED. C/O LEFT SIDE ABD PAIN 10/10, PEDAL PULSE PRESENT BOTH FEET, NO EDEMA, PICC LINE AT RIGHT UPPER ARM, ALL ADLS ASSIST, ALL NEED MET, CALL LIGHT IN REACH, WILL CONTINUE TO MONITOR.
--- NOTE | 2018-11-26 15:41 | NUR ---
RESUMED CARE OF THIS PT FROM MR. KULKARNI. PT RECEIVED IN NO DISTRESS. AWAKE AND ALERT. DOSING ON AND OFF. FAMILY AT BEDSIDE. IVF INFUSING WELL VIA DIVYA PICC LINE, SITE WITH NO S/S OF INFECTION. FAMILY AT BEDSIDE. CALL LIGHT WITHIN REACH. WILL CONTINUE WITH PLAN OF CARE.
[2018-11-26 17:29] VITALS: BP 186/87
--- NOTE | 2018-11-26 17:58 | NUR ---
BP ELEVETED 186/86. N.P MUTUC NOTIFIED,, COREG GIVEN EARLY PER LANDSCAPE MAINTENANCE INTERNSHIP. PT ASYMPTOMATIC. RESTING IN BED. DENIES CHEST DISCOMFORT. AT BEDSIDE. CALL LIGHT WITHIN REACH.
--- NOTE | 2018-11-26 18:58 | NUR ---
C/O ABD. PAIN 10/10 MEDICATED WITH IV MORPHINE PER ORDER. FAMILY AT BEDSIDE. CALL LIGHT WITHIN REACH. WILL BE ENDORSED TO INCOMING SHIFT.
--- NOTE | 2018-11-26 19:20 | NUR ---
AOX4. MED SURG. LUNGS CLEAR ON RA. PULSES PALPABLE. NO EDEMA. BOWEL SOUNDS ACTIVE. DENIES ABD PAIN, C/O NAUSEA. VOIDS FREELY. SKIN INTACT. DENIES ALL OTHER PAIN. PICC LINE TO RUE, BOTH PORTS PATENT. NO REDNESS/SWELLING. CURRENTLY NPO. AT BEDSIDE. BED IN LOWEST POSTIION, 2 SIDE RAILS UP, CALL LIGHT IN REACH. INSTRUCTED TO CALL FOR ASSISTANCE.
[2018-11-26 20:40] VITALS: BP 145/83
--- NOTE | 2018-11-27 01:07 | NUR ---
RESTING WITH EYES CLOSED. BREATHING E/U. NO ACUTE DISTRESS NOTED. WILL CONTINUE TO MONITOR.
--- NOTE | 2018-11-27 01:12 | NUR ---
RESTING WITH EYES CLOSED. BREATHING E/U. NO ACUTE DISTRESS NOTED. WILL CONTINUE TO MONITOR.
[2018-11-27 05:43] VITALS: BP 159/85
[2018-11-27 06:26] LABS: BASOPHIL % 0.1 % (0-2); PLATELET COUNT 243 x10^3mcL (130-400)
[2018-11-27 06:38] LABS: CALCIUM 8.9 mg/dL (8.5-10.1); CARBON DIOXIDE 23.5 mmol/L (21-32); CREATININE SERUM 1.4 mg/dL (0.7-1.3); RED CELL DISTRIBUTION WIDTH 16.8 % (11.5-14.5)
[2018-11-27 06:56] LABS: POTASSIUM SERUM 2.3 mmol/L (3.5-5.1)
--- NOTE | 2018-11-27 06:58 | NUR ---
CRITICAL LAB POTASSIUM 2.[address] HERNÁNDEZ AND DR HARDIN VIA [facility]. NO ACUTE DISTRESS NOTED. WILL ENDORSE TO ONCOMING RN.
--- NOTE | 2018-11-27 07:30 | NUR ---
PT ENDORSE TO ME THIS MORNING. LAYING IN BED RESTING. AA/O X4 BREATHING EVEN AND UNLABORED ON RA. DENIES ANY CP OR PRESSURE. MEDSURG. REMAINS NPO. DENIES ANY DISCOMFORT AT THIS TIME. GEN WEAKNESS NOTED. VOIDS FREELY. PICC R ARM INTACT AND PATENT INFUSING AT 100ML/HR. NO REDNESS OR SWELLING NOTED. CALL LIGHT IN REACH. BED IN LOW POSTION. WILL WILL CONTINUE TO MONITOR.
--- NOTE | 2018-11-27 08:53 | NUR ---
PT C/O ABD PAIN 11/10 / MEDICATED PER EMAR. WILL CONTINUE TO MONITOR.
[2018-11-27 09:00] VITALS: BP 116/75; BP 159/80
[2018-11-27 10:00] VITALS: BP 159/80
--- NOTE | 2018-11-27 12:00 | NUR ---
PT LAYING IN BED RESTING. DENIES ANY PAIN OR DISCOMFORT AT THIS TIME. STATED MORPHINE HELPED WITH ABD PAIN. REMAINS NPO. WILL CONTINUE TO MONITIOR.
--- NOTE | 2018-11-27 13:27 | NUR ---
P.T. NOTES P.T. EVAL COMPLETED, REFER TO EVAL FOR DETAILS; [facility]
[2018-11-27 16:37] VITALS: BP 161/84
--- NOTE | 2018-11-27 18:37 | NUR ---
NO ACUTE CHANGES AT TIME. REMIANS NPO. NO ACUTE RESP DISTRESS OR SOB NOTED. DENIES ANY DISCOMFORT AT THIS TIME. PICC LINE TO R ARM INTACT AND PATENT/ NO REDNESS OR SWELLING NOTED. WILL ENDORSE TO INCOMING RN.
--- NOTE | 2018-11-27 19:30 | NUR ---
AOX4. MED SURG. LUNGS CLEAR ON RA. PULSES PALPABLE. NO EDEMA. BOWEL SOUNDS HYPO ACTIVE. DENIES ABD PAIN, DENIES NAUSEA. VOIDS FREELY. SKIN INTACT. DENIES ALL OTHER PAIN. PICC LINE TO RUE, BOTH PORTS PATENT. NO REDNESS/SWELLING. CURRENTLY NPO. AT BEDSIDE. BED IN LOWEST POSTIION, 2 SIDE RAILS UP, CALL LIGHT IN REACH. INSTRUCTED TO CALL FOR ASSISTANCE.
[2018-11-27 19:38] VITALS: BP 141/76
--- NOTE | 2018-11-27 21:50 | NUR ---
DR. VASQUEZ AT BEDSIDE TO ASSESS PATIENT.
[2018-11-28] VITALS (7 sets, daily range): BP systolic 130–175; BP diastolic 73–87
--- NOTE | 2018-11-28 00:34 | NUR ---
RESTING IN BED WITH EYES CLOSED. BREATHING E/U. NO ACUTE DISTRESS NOTED. AT BEDSIDE. WILL CONTINUE TO MONITOR.
--- NOTE | 2018-11-28 03:07 | NUR ---
CARE ENDORSED TO CHRISTOPHER SLAUGHTER
--- NOTE | 2018-11-28 03:08 | NUR ---
RESUMING CARE OF PT AT THIS TIME.
--- NOTE | 2018-11-28 06:30 | NUR ---
PT IS CALM AND COOPERATIVE WITH NURSING CARE. FLEET ENEMA GIVEN ORDERED AND TOLERATED WELL. PT FAMILY AT BEDSIDE AND ASSISTS WITH PT CARE. PT SLEPT THROUGHOUT THE EVENING. ALL PT NEEDS MET. NO SIGNS OF DISTRESS. WILL ENDORSE TO DAY NURSE.
--- NOTE | 2018-11-28 07:37 | NUR ---
PT ENDORSE TO ME THIS MORNING. LAYING IN BED RESTING. AT BEDSIDE. AA/O X4 BREATHING EVEN AND UNLABORED ON RA. NO ACUTE RESP DISTRESS OR SOB NOTED. REMAINS NPO/ TOLERATING WELL. MEDSURG. DENIES ANY CP OR PRESSSURE. BOWEL SOUNDS ACTIVE, HAS SMALL BM LAST NIGHT/ PASSING GAS. VOIDS FREELY. AMB. IV TO THE DIVYA PICC LINE INTACT AND PATENT. CALL LIGHT IN REACH. BED IN LOW POSTION. WILL CONTINUE PLAN OF CARE.
[2018-11-28 07:55] LABS: CALCIUM 8.4 mg/dL (8.5-10.1); CARBON DIOXIDE 21.6 mmol/L (21-32); CHLORIDE SERUM 96 mmol/L (98-107); CREATININE SERUM 1.2 mg/dL (0.7-1.3); GFR1 > 60 mL/min; GLUCOSE SERUM 339 mg/dL (74-106); LIPASE 830 IU/L (73-393); SODIUM SERUM 129 mmol/L (136-145)
[2018-11-28 08:17] LABS: PLATELET COUNT 188 x10^3mcL (130-400); RED CELL DISTRIBUTION WIDTH 17.3 % (11.5-14.5)
[2018-11-28 08:50] LABS: POTASSIUM SERUM 2.3 mmol/L (3.5-5.1)
--- NOTE | 2018-11-28 09:31 | NUR ---
NEIL DOOR CLAMPER AWARE OF K 2.3
--- NOTE | 2018-11-28 10:18 | NUR ---
PT C/O ABD PAIN, MEDICATED PER EMAR.
[2018-11-28 12:13] LABS: BAND NEUTROPHIL 1 % (0-10); BASOPHIL 0 % (0-2); MONOCYTE 4 % (0-7); PLATELET MORPHOLOGY PLATELETS DECREASED; SEGMENTED NEUTROPHILS 93 % (37-75)
[2018-11-28 12:14] LABS: rbc morphology (normal/abnorm) ABNORMAL (NORMAL)
--- NOTE | 2018-11-28 13:30 | NUR ---
Initial Nutrition Assessment: Dx: Acute Pancreatitis, Septic Joint PMHx: DM2, HTN, Psychosis, Bipolar, HDL, Anemia, Schizophrenia PSHx: Left Shoulder Surgery Labs: (11/27) Na 133L, K 2.3L, BG 156H, BUN 26H, Cre 1.4H, Lipase 2053H, H/H 9.6L/28L Meds: D5%/NaCl IV, Dulcolax, Iron, Humulin, Lantus, Lipitor, Pepcid, Zofran Diet: NPO x 2 days PO Intake: Ht: 5'9 Wt: 195 lb, 88 kg BMI: 28.8 kg/m2 (Overweight) Bed scale: ERAN IBW: 160 lb, 73 kg %IBW: 122 UBW: 187 lb Age: 58 yrs old/ Male Food Allergies: NKFA Skin: is intact. David: 20 Edema: none GI: abd is distended, hypoactive bowel sounds. Last BM: 11/28/18, formed per pt report. Pt seen earlier today w/ at bedside. Pt answered RD interview. Verified anthropometrics. reported that pt has not had anything to eat since Tuesday noon. Pt is a [place] and verbalized food preferences. RD informed kitchen staff and will note in Comput[employer]. RD also s/w AUTOMATION TECH for diet order (add CCHO to current Clear liquid diet). Per RN, put order for clear liquid diet this morning and pt was served w/ Sugar free Sprite and tea. Pt seen tolerating tea during this visit and pt verbalized interest for more solid food. Trigger received for N/V/D for >3days, poor PO intake >3 days Problem with: N/V/D/C: Problems with: Chewing: Swallowing: Current appetite: Recent wt change: %wt change: Vitamin/Supplement use: Fiber, Iron, VIT D3 Special diet at home: none Physical activity: Nutrition education: pt was notified of current Clear liquid diet and given a description of restrictions. Pt verbalized understanding. Food-drug interaction: none at this time. Estimated Nutritional Needs Based on actual body weight 88 kg Energy: 1879-2450 kcal/d (25-30 kcal/day for maintenance) Protein: 70-88 g/d (.8 - 1 g/kg - for elevated Renal lab values) Fluid: 7794-4408 ml/d (1 ml/kcal) or per doctor Nutrition Diagnosis Inadequate nutrient intake r/t altered GI function AEB Dx of acute pancreatitis and pt's c/o abd pain, poor PO intake LEGISLATIVE CORRESPONDENT. Intervention 1. Recommend adding CCHO to Clear liquid diet. 2. If/when medically appropriate, advance diet to Full Liquid CCHO diet w/ Glucerna BID. Monitor/Evaluate Goal: PO intake at least 75% of estimated needs Monitor: PO intake, Labs, GI function F/U in 2-3 days as high risk 11/30-12/01
--- NOTE | 2018-11-28 13:30 | NUR ---
1. Recommend adding CCHO to Clear liquid diet. 2. If/when medically appropriate, advance diet to Full Liquid CCHO diet w/ Glucerna BID.
--- NOTE | 2018-11-28 18:51 | NUR ---
NO ACUTE CHANGES AT THIS TIME. NO ACUTE RESP DISTRESS OR SOB NOTED. DENIES ANY CP OR PRESSURE. PICC LINE TO DIVYA PATENT AND INTACT. WILL ENDORSE TO INCOMING RN.
--- NOTE | 2018-11-28 19:31 | NUR ---
RECEIVED PT FROM PREVIOUS SHIFT. PT A/OX4. DENIES SOB ON RA. REQUESTING NORCO INSTEAD OF MORPHINE. DR HARDIN MADE AWARE. AT BEDSIDE. CALL LIGHT WITHIN REACH, BED IN LOW POSITION. WILL CONTINUE TO MONITOR.
--- NOTE | 2018-11-29 02:04 | NUR ---
PT RESTING IN NO ACUTE DISTRESS. RR EVEN AND UNLABORED. CALL LIGHT WITHIN REACH, BED IN LOW POSITION. WILL CONTINUE TO MONITOR.
[2018-11-29 05:58] VITALS: BP 138/86
[2018-11-29 06:53] LABS: CALCIUM 8.8 mg/dL (8.5-10.1); CREATININE SERUM 1.4 mg/dL (0.7-1.3)
--- NOTE | 2018-11-29 07:13 | NUR ---
ASSUMED CARE OF PATIENT. RECIEVED REPORT FROM PREVIOUS RN.
[2018-11-29 07:24] LABS: CARBON DIOXIDE 18.9 mmol/L (21-32)
[2018-11-29 08:09] VITALS: BP 149/94
[2018-11-29 08:51] LABS: PLATELET COUNT 195 x10^3mcL (130-400)
[2018-11-29 08:53] LABS: BASOPHIL % 0 % (0-2)
--- NOTE | 2018-11-29 10:48 | NUR ---
PATIENT REPORTING PATIENT HAD HISTORY OF LOW NA LEVELS AND HAS BEEN TAKING SAMSCA 15MG DAILY. RACHEL TREJO NOTIFIED.
--- NOTE | 2018-11-29 11:43 | NUR ---
KELL OBTAINED FROM FAMILY AND TAKEN DOWN TO PHARMACY. UPDATED ON NPO STATUS FOR MRI MRCP. PATIENT QUESTIONING REASON FOR NPO STATUS AND BECAME SLIGHTLY AGITATED. EDUCATED PATIENT ON PURPOSE FOR THE EXAMINATION. ALSO UPDATED.
--- NOTE | 2018-11-29 12:04 | NUR ---
REPORT FROM STUDENT RN THAT PATIENT IS REFUSING TO TAKE NORVASC AND LISINOPRIL. STATES HE ONLY TAKES THEM AT NIGHT. PATIENT ALSO INFORMED OF NPO STATUS AND MRCP PLAN TODAY. ALSO UPDATED.
--- NOTE | 2018-11-29 12:09 | NUR ---
BS 162. INSULIN HELD FOR NPO STATUS.
--- NOTE | 2018-11-29 12:36 | NUR ---
MRI CONSENT FORMED COMPLETED AND SIGNED. PLACED IN CHART.
--- NOTE | 2018-11-29 13:35 | NUR ---
RADIOLOGY CALLED FOR MRCP TIME. REPORT THAT IF TECH DOES NOT ARRIVE BY 2PM, TEST WILL BE DONE TOMORROW MORNING. NOTIFIED FAMILY. PATIENT AND FAMILY AGITATED THAT TEST COULD POSSIBLY BE PUSHED. WILL FOLLOW UP WITH RADIOLOGY TO CONFIRM TIME.
--- NOTE | 2018-11-29 14:00 | NUR ---
VISUAL EDUCATION TEACHER TO COME SOON REPORTED BY RADIOLOGY. INFORMED PATIENT AND .
--- NOTE | 2018-11-29 14:26 | NUR ---
REPORT FROM INDEPENDENT CONTRACTOR; UNABLE TO DO TODAY DUE TO STENTS. NEED MORE INFORMATION.
--- NOTE | 2018-11-29 14:46 | NUR ---
PATIENT ALARM TECHNICIAN OFFICE CONTACTED FOR STENT INFORMATION. ATTEMPTED TO CONTAT TO NOTIFY OF LATE MRI.
--- NOTE | 2018-11-29 15:33 | NUR ---
PATIENT SEEN RESTING IN BED WITH EVEN AND UNLABORED RESPIRATIONS.
--- NOTE | 2018-11-29 16:15 | NUR ---
RACHEL TREJO NOTIFIED OF STENTS IN PATIENT, UNABLE TO DO MRI. ATTEMPTED TO NOTIFIY . WAS UNABLE.
[2018-11-29 16:36] VITALS: BP 138/76
--- NOTE | 2018-11-29 17:14 | NUR ---
STENT INFORMATION OBTAINED FROM PATIENT . NOTIFIED BLOCK SEALER NEIL ON SAFETY OF MRI WITH CURRENT STENT. PHOTOCOPY OF STENT INFORMATION PLACED IN CHART.
--- NOTE | 2018-11-29 17:20 | NUR ---
PATIENT REFUSING REGULAR INSULIN COVERAGE. BS 153. PATIENT ENDORSING LOW APPETITE AND FEELS THAT HIS SUGAR WILL DROP IF HE RECIEVES INSULIN. EDUCATED PATIENT OF PURPOSE OF INSULIN COVERAGE BUT CONTINUES TO REFUSE.
--- NOTE | 2018-11-29 18:52 | NUR ---
PATIENT SEEN RESTING IN BED WITH NO COMPLAINTS OF PAIN OR DISCOMFORT. WILL ENDORSE CARE TO ONCOMING RN.
--- NOTE | 2018-11-29 19:05 | NUR ---
REPORT RECIEVED FROM DAY SHIFT RN. PATIENT WAS SEEN AND IS RESTING COMFORTBALY IN BED. BREATHING EVEN ON ROOM AIR. NO SOB OR RESP DISTRESS NOTED. A/OX4. FLAT AFFECT NOTED. DENIES CHEST PAIN. NO C/O PAIN. PICC LINE TO THE RUE INFUSING WELL. NO REDNESS OR SWELLING NOTED. EUCATED PATIENT AND FAMILY ABOUT NPO STATUS AT MIDNIGHT. COMFORT AND SAFETY MEASURES MAINTAINED. BED IS LOCKED AND IN THE LOWEST POSITION. SIDE RAILS UP X2. CALL LIGHT IS WITHIN REACH. AT BEDSIDE. INSTRUCTED PATIENT TO CALL FOR ASSISTANCE. WILL CONTINUE TO MONITOR.
[2018-11-29 21:02] VITALS: BP 152/79
--- NOTE | 2018-11-30 01:33 | NUR ---
PATIENT RESTING IN BED WITH EYES CLOSED. NO DISTRESS NOTED. BREATHING EVEN. PICC LINE TO THE RUE INFUSING WELL. AT BEDSIDE. REPORTED PATIENT VOIDED ALL OVER HIMSELF. CLEANED AND LINENS CHANGED BY GREEN MARKETING ANALYST. CALL LIGHT IS WITHIN REACH. WILL CONTINUE TO MONITOR
--- NOTE | 2018-11-30 03:18 | NUR ---
PATIENT FELT HOT. TEMP WAS ASSESSED. TEMP 100.1. COOLING MEASURES IMPLEMENTED TO BOTH AXILLAS AND FOREHEAD. WILL REASSESS. CALL LIGHT IS WITHIN REACH/
[2018-11-30 05:44] VITALS: BP 130/78
--- NOTE | 2018-11-30 06:35 | NUR ---
PATIENT SLEPT IN LONG INTERVALS THROUHGOUT THE NIGHT. NO ACUTE CHANGES NOTED. NO DISTRESS NOTED. BREATHING EVEN ON ROOM AIR. PICC LINE TO RUE INFUSING WELL. AT BEDSIDE. NPO AT THIS TIME FOR MRI IN AM. NO C/O PAIN THROUGHOUT THE NIGHT. COMFORT AND SAFETY MEASURES MAINTAINED. CALL LIGHT IS WITHIN REACH. WILL ENDORSE CARE TO DAY SHIFT RN.
[2018-11-30 06:55] LABS: PLATELET COUNT 230 x10^3mcL (130-400)
[2018-11-30 07:12] LABS: BASOPHIL % 0 % (0-2); RED CELL DISTRIBUTION WIDTH 16.8 % (11.5-14.5)
[2018-11-30 07:13] LABS: CALCIUM 8.6 mg/dL (8.5-10.1); CARBON DIOXIDE 24.2 mmol/L (21-32); CHLORIDE SERUM 102 mmol/L (98-107); CREATININE SERUM 1.3 mg/dL (0.7-1.3); GFR1 > 60 mL/min; GLUCOSE SERUM 79 mg/dL (74-106); LIPASE 459 IU/L (73-393); POTASSIUM SERUM 4.4 mmol/L (3.5-5.1); SODIUM SERUM 134 mmol/L (136-145)
--- NOTE | 2018-11-30 07:32 | NUR ---
ASSUMED CARE OF PATIENT. RECIEVED REPORT FROM NIGHT RN. PATIENT SEEN SITTING UP IN BED, NO COMPLAINTS OF PAIN OR DISCOMFORT. REPORTS "FEELING BETTER TODAY." WILL FOLLOW UP WITH RADIOLOGY REGARDING MRI SCHEDULED FOR TODAY.
--- NOTE | 2018-11-30 07:40 | NUR ---
FOLLOWED UP WITH RADIOLOGY FOR TIME OF MRI. REPORTING LICENSED AUDIOLOGIST WILL BE COMING IN AT 9-930AM. PATIENT AND INFORMED. BECAME AGITATED AND ARGUMENTATIVE DUE TO LICENSED AUDIOLOGIST TELLING THEM YESTERDAY THAT THE LICENSED AUDIOLOGIST WILL BE IN AT 8AM. ATTEMPTED TO DE-ESCALATE SITUATION, WAS MORE REASONABLE ABOUT SITUATION.
--- NOTE | 2018-11-30 08:28 | NUR ---
PO MEDICATIONS HELD FOR MRI PREP.
--- NOTE | 2018-11-30 09:10 | NUR ---
PATIENT TAKEN DOWN FOR MRI
--- NOTE | 2018-11-30 09:45 | NUR ---
RETURN FROM MRI
--- NOTE | 2018-11-30 10:13 | NUR ---
RACHEL TREJO NOTIFIED OF MRCP RESULTS.
[2018-11-30 10:30] VITALS: BP 155/81
--- NOTE | 2018-11-30 10:30 | NUR ---
PATIENTS RUE PICC LINE RED PORT NOT FLUSHING AND BACK FLOWING WITH BLOOD. PICC LINE NURSE NOTIFIED. AWAITING ETA.
--- NOTE | 2018-11-30 10:44 | NUR ---
PICC LINE NURSE CALLED. VERIFIED WITH INNER TUBE TUBER MACHINE OPERATOR NEIL, STATES PICC LINE WITH BE D/C TODAY. NEEDS TO SPEAK WITH .
--- NOTE | 2018-11-30 12:12 | NUR ---
RECIEVED ORDER FOR PICC LINE D/C. ATTEMPTING TO CONTACT PICC LINE RN FOR REMOVAL.
--- NOTE | 2018-11-30 12:24 | NUR ---
VOICEMAIL LEFT FOR PICC LINE RN.
--- NOTE | 2018-11-30 12:37 | NUR ---
CALL FROM LAB FOR VALPROIC ACID LEVEL. STATES ORDER CAN BE DONE DIRECTLY UNDER VALPROIC ACID INSTEAD OF MISC. BOARD WINDER NEIL NOTIFIED, OKAY TO CHANGE ORDER TO VALPROIC ACID.
--- NOTE | 2018-11-30 12:41 | NUR ---
PER CHARGE ACOSTA; APPROVAL FROM [facility], PICC LINE RN TO COME FOR REMOVAL OF PICC LINE.
[2018-11-30 12:58] VITALS: BP 155/81
--- NOTE | 2018-11-30 13:00 | NUR ---
PATIENT AND NOTIFIED OF PICC LINE RN ARRIVING IN ABOUT 30 MINUTES TO REMOVE PICC LINE.
--- NOTE | 2018-11-30 13:41 | NUR ---
PICC LINE REMOVED BY PICC LINE GAVIN JARAMILLO 39 CM IN LENGTH. NO BLEEDING AT PICC LINE SITE.
--- NOTE | 2018-11-30 13:48 | NUR ---
DUPLICATE VALPROIC ACID LAB LEVEL D/C PER HOUSING SPECIALIST [facility].
--- NOTE | 2018-11-30 14:01 | NUR ---
PATIENT DISCHARGED WITH ALL BELONGINGS AND AT SIDE. ALERT AND ORIENTED X4. NO COMPLAINTS OF PAIN OR DISCOMFORT. DISCHARGE INSTRUCTION AND TEACHING PROVIDED. ID BANDS REMOVED. JOSE LUIS RETURNED TO PATIENT. DROPPED OFF AT DISCHARGE OFFICE.
== END 2018-11-30 14:00 | disposition home or self-care (01) | DRG 720 ==
LOC: ED 09:03 → MU 13:32
PROVIDERS: Emergency Medicine; Internal Medicine; ADMIT General Practice
DX: A41.9 Sepsis, unspecified organism (principal); E43 Unspecified severe protein-calorie malnutrition; K85.90 Acute pancreatitis without necrosis or infection, unspecified; M00.012 Staphylococcal arthritis, left shoulder; F25.0 Schizoaffective disorder, bipolar type; B95.7 Other staphylococcus as the cause of diseases classified elsewhere; E11.9 Type 2 diabetes mellitus without complications; E78.00 Pure hypercholesterolemia, unspecified; E87.6 Hypokalemia; E78.5 Hyperlipidemia, unspecified; I25.10 Atherosclerotic heart disease of native coronary artery without angina pectoris; I10 Essential (primary) hypertension; Z95.5 Presence of coronary angioplasty implant and graft
CPT/HCPCS: 74181; 82962; J0690; J1815; J1885; J2270; J2405; J2543; J3480; J3490; J7030; J7042; Q0092

== ENCOUNTER 2019-06-19 14:24 | Inpatient (IN) | payer OTHER ==
[~2019-06-19] VITALS: Ht 175.3 cm; Wt 92.5 kg
[~2019-06-19 14:24] MED LIST changes: +CARVEDILOL6.25 M1 PO; +DEPAKOTE ER500 MG PO; +FERROUS SULFAT325 M2 PO; +GLIPIZIDE ER10 M1 PO; +GOOD SENSE ASPI81 M3 PO; +HUMALOG100 UNIT/1 SQ; +LIPITOR40 MG PO; +LISINOPRIL40 MG PO; +MASON NATURAL1000 IU PO; +NICOTINE T7 MG/24 H1 TD; +TRICOR145 M1 PO; +ZYP10 PO
[2019-06-19 14:40] VITALS: Ht 175.3 cm; Wt 92.5 kg
--- NOTE | 2019-06-19 15:41 | NUR ---
PT ALSO C/O MUQ PAIN PT STS HX PANCREATITIS AND STS "I THINK IT IS ACTING UP" PT DENIES ANY N/V EPISODES
--- NOTE | 2019-06-19 15:41 | NUR ---
PT C/O HEADACHE X2 DAYS WITH HIGH BLOOD PRESSURE, PT REPORTS +COMPLIANCE WITH AMLODIPINE 5MG DAILY AND LISINOPRIL 20 MG BID, PT STS "I EVEN TOOK AN EXTRA 20MG LISINOPRIL TODAY AND IT WENT FROM 200 TOP NUMBER TO 180'S" PT DENIES ANY DIZZINESS, LOC, RECENT TRAUMA AND/OR INJURY, CHEST PAIN, N/V, AND/OR VISION PROBLEMS, PT AAOX4, NO NEURO DEFICITS NOTED AT THIS TIME, RESPS E/U, SKIN PINK DRY WARM INTACT, NO DEFORMITIES NOTED, PT IN NAD ON FULL CM, NSR, WITH SPOUSE AT BEDSIDE AWAITING MSE
--- NOTE | 2019-06-19 15:56 | NUR ---
MD ARITA AT BEDSIDE PERFORMING MSE
--- NOTE | 2019-06-19 16:59 | NUR ---
PT REQUESTING PAIN MEDICATION FOR 10/10 ABD PAIN, MD ARITA MADE AWARE
[2019-06-19 17:15] LABS: BASOPHIL % 0.3 % (0-2); PLATELET COUNT 259 x10^3mcL (130-400); RED CELL DISTRIBUTION WIDTH 15.3 % (11.5-14.5)
[2019-06-19 17:25] LABS: CALCIUM 9.4 mg/dL (8.5-10.1); CARBON DIOXIDE 28.8 mmol/L (21-32); CHLORIDE SERUM 101 mmol/L (98-107); CREATININE SERUM 1.3 mg/dL (0.7-1.3); GFR1 > 60 mL/min; GLUCOSE SERUM 128 mg/dL (74-106); POTASSIUM SERUM 3.9 mmol/L (3.5-5.1); SODIUM SERUM 137 mmol/L (136-145)
[2019-06-19 17:32] LABS: LIPASE 4901 IU/L (73-393)
--- NOTE | 2019-06-19 17:39 | NUR ---
PORTABLE US AT BEDSIDE, US IN PROGRESS
--- NOTE | 2019-06-19 17:48 | NUR ---
PT MEDICATED PER MD ORDER AND EMAR, VSS, NSR ON CM
--- NOTE | 2019-06-19 18:38 | NUR ---
EKG IN PROGRESS
--- NOTE | 2019-06-19 18:38 | NUR ---
LABETOLOL HELD D/T PT BP, MD ARITA MADE AWARE
--- NOTE | 2019-06-19 18:45 | NUR ---
I ATTEMPTED TO OBTAIN IV ACCESS, UNSUCCESSFUL, PT REQUESTING A DIFFERENT NURSE TO ATTEMPT IV ACCESS. PRIMARY RN DOLORES MADE AWARE
[2019-06-19] MEDS ORDERED: VENTOLIN H0.09 MG/A1 (18:53)
[2019-06-19] MEDS ORDERED: KLOR-CON M2020 MEQ PO (18:53)
[2019-06-19] MEDS ORDERED: LASIX40 MG PO (18:55)
[2019-06-19] MEDS ORDERED: GLIPIZIDE10 M2 PO (18:56)
[2019-06-19] MEDS ORDERED: NOR10T PO (18:57)
[2019-06-19] MEDS ORDERED: FENOFIBRATE145 M1 PO (18:58)
[2019-06-19 19:05] LABS: ALBUMIN 3.3 g/dL (3.4-5.0); BILIRUBIN DIRECT 0.18 mg/dL (0.0-0.2); BILIRUBIN TOTAL 0.39 mg/dL (0.20-1.00); TOTAL PROTEIN, SERUM 7.7 g/dL (6.4-8.2)
--- NOTE | 2019-06-19 19:05 | NUR ---
REPORT GIVEN TO BOYD ALBRECHT RN WHO IS RESUMING CARE OF PT AT THIS TIME
[2019-06-19] MEDS ORDERED: DEPAKOTE500 MG PO (19:10)
--- NOTE | 2019-06-19 19:13 | NUR ---
PT REPORT RECEIVED FROM DOLORES ALONSO TO ASSUME PT CARE. PT RESTING IN A POSITION O COMFORT, AOX4, RESP EVEN AND UNLABORED, NO ACUTE DISTRESS NOTED.
--- NOTE | 2019-06-19 19:15 | NUR ---
INITIATED FLUID BOLUS, PT C/O PAIN TO IV SITE. FLUSHED IV WITH NO RESISTANCE, NO S/S INFILTRATION NOTED. PT REQUSTING THAT DR ARITA ASSESS IV FOR PATENCY. DR ARITA AT BEDSIDE, REPORTS NO SWELLING OR INFILTRATION. IV FLUIDS INITIATED AGAIN.
[2019-06-19] MEDS ORDERED: BASAGLAR K100 UNIT/1 (19:22)
[2019-06-19] MEDS ORDERED: NOR5 PO (19:24)
--- NOTE | 2019-06-19 20:04 | NUR ---
IV REMOVED DUE TO INFILTRATION IN THE L AC, IV ESTABLISHED TO THE R WRIST, FLUSHED EASILY WITH NO S/S INFILTRATION NOTED. GOOD BLOOD RETURN NOTED.
--- NOTE | 2019-06-19 20:27 | NUR ---
PT EDUCATED THAT PT IS NPO AFTER REQUESTING WATER AND FOOD FOR PT. VERBALIZED UNDERSTANDING.
[2019-06-19 20:34] LABS: CHOLESTEROL/HDL RATIO 7.7
--- NOTE | 2019-06-19 20:52 | NUR ---
PT RESTING WITH EYES CLOSED AT THIS TIME, RESP EVEN AND UNLABORED, NO ACUTE DISTRESS NOTED.
--- NOTE | 2019-06-19 22:47 | NUR ---
PT REPORT CALLED TO MIGNON ALONSO TO ASSUME PT CARE.
--- NOTE | 2019-06-19 22:50 | NUR ---
PT TRANSFERRED TO [facility] BY [facility] [place] BY BESSIE ALONSO AND IMMANUEL EMT. PT ON FULL CM FOR TRANSPORT. PT AOX4, RESP EVEN AND UNLABORED, NO ACUTE DISTRESS NOTED. PT ACCEPTED BY MIGNON ALONSO TO ASSUME PT CARE. PT AMBULATED FROM [facility] [place] TO BED WITHOUT INCIDENT. CARE ENDORSED TO RN.
--- NOTE | 2019-06-19 22:55 | NUR ---
PT ARRIVED FROM ER ACCOMPANIED BY NURSE. PT LOOKS TO BE IN NO ACUTE DISTRESS AT THIS TIME. CURRENT VITAL SIGNS ARE BP: 150/107, MAP: 116, HR: 72, TEMP: 97.7 ORAL, O2: 97% ON ROOM AIR, RR: 18. PT COMPLAINING OF 7/10 PAIN TO THE ABD, NONRADIATING SHARP PAIN. PT IS AWAKE, ALERT AND ORIENTED X4. LUNG SOUNDS CLEAR BILATERALLY ON ROOM AIR AND RESPIRATIONS EVEN AND UNLABORED. PULSES PALPABLE, TRACE EDEMA NOTED TO BLE. BOWEL SOUNDS ACTIVE X4 QUADRANTS, LAST BM 06/17. PT AMBULATORY WITH CANE AT HOME. PT VOIDS FREELY AND DENIES ANY DYSURIA. PT STATES HAVING FALLEN IN THE PAST 2 MONTHS AT HOME DUE TO UNBALANCE. ORIENTED PT TO ROOM AND UNIT. CALL LIGHT WITHIN REACH, BED IN LOWEST POSITION, WILL CONTINUE TO MONITOR.
[2019-06-19 23:55] VITALS: BP 150/107
[2019-06-20] VITALS (7 sets, daily range): BP systolic 142–170; BP diastolic 84–90
--- NOTE | 2019-06-20 00:30 | NUR ---
ATTEMPTED TO MEDICATE PT ACCORDING TO EMAR WITH ZYPREXA. PT STATED THAT HE NO LONGER TAKES THIS MEDICATION AND HIS PCP DISCONTINUED THIS MEDICATION ABOUT A MONTH AGO AND STATED THAT HE DOES NOT WISH TO TAKE THE MEDICATION AT THIS TIME. WILL NOTIFY
--- NOTE | 2019-06-20 02:17 | NUR ---
PT IS LAYING DOWN IN BED WITH HOB UP AND EYES CLOSED. RESPIRATIONS EVEN AND UNLABORED ON ROOM AIR. IV SITE PATENT WITH NO SIGNS OF ERYTHEMA OR SWELLING WITH IV FLUIDS INFUSING. AT BEDSIDE. CALL LIGHT WITHIN REACH. WILL CONTINUE TO MONITOR.
--- NOTE | 2019-06-20 04:25 | NUR ---
PT COMPLAINING OF 8/10 PAIN TO THE ABD. MEDICATED PT ACCORDING TO EMAR. PT AND FAMILY MEMBER ASKING ABOUT PT'S HOME MEDICATION DEPAKOTE AND GLIPIZIDE IF THE MEDICATION WILL BE CONTINUED. ASKED DRPam ABOUT MEDICATIONS AND RECOMMENDED HOLDING MEDICATIONS AT THIS TIME. RELAYED INFORMATION TO PT AND FAMILY MEMBER. WILL CONTINUE TO MONITOR.
--- NOTE | 2019-06-20 06:15 | NUR ---
SENT [facility]A DOWN TO LAB
[2019-06-20 06:27] LABS: microscopic required? NO
--- NOTE | 2019-06-20 06:40 | NUR ---
CHECKED PT BLOOD SUGAR AND IS 65, RECHECKED BLOOD SUGAR AND IS 63. PT IS NPO AT THIS TIME DUE TO ADMITTING DIAGNOSIS OF PANCREATITIS. NOTIFIED DR. STACY AND INSTRUCTED TO GIVE D50 IV AND WILL CHANGE MAINTENANCE FLUIDS. PT HAS TREMORS TO HANDS, PT STATES IT IS A SIDE EFFECTS FROM MEDICATION BUT PT STATES THAT HE FEELS LIKE HIS BLOOD SUGAR IS LOW AT THIS TIME. WILL RECHECKED BLOOD SUGAR IN 15 MINUTES.
[2019-06-20 06:51] LABS: BASOPHIL % 0.4 % (0-2); PLATELET COUNT 218 x10^3mcL (130-400)
[2019-06-20 06:56] LABS: CALCIUM 8.5 mg/dL (8.5-10.1); CHLORIDE SERUM 104 mmol/L (98-107); CREATININE SERUM 1.1 mg/dL (0.7-1.3); GFR1 > 60 mL/min; GLUCOSE SERUM 63 mg/dL (74-106); MAGNESIUM 1.7 mg/dL (1.8-2.4); PHOSPHOROUS 2.9 mg/dL (2.5-4.9); POTASSIUM SERUM 3.1 mmol/L (3.5-5.1); SODIUM SERUM 139 mmol/L (136-145)
--- NOTE | 2019-06-20 07:00 | NUR ---
REPEATED BLOOD SUGAR AND IS 175 AT THIS TIME. PT LOOKS TO BE IN NO ACUTE DISTRESS AT THIS TIME. WILL CONTINUE TO MONITOR.
--- NOTE | 2019-06-20 07:05 | NUR ---
WILL BE CARING FOR PT UNTIL DAY SHIFT NURSE COMES TO TAKE OVER CARE OF PT
[2019-06-20 07:08] LABS: RED CELL DISTRIBUTION WIDTH 15.3 % (11.5-14.5)
[2019-06-20 08:17] LABS: UA SPECIFIC GRAVITY <=1.005 (1.005-1.035); urine erythrocyte NEGATIVE (NEGATIVE)
[2019-06-20 09:10] LABS: AMPHETAMINE QUAL UR NONE DETECTED (See below)
--- NOTE | 2019-06-20 10:15 | NUR ---
PT COMPLAINING OF 10/10 PAIN TO THE ABD. WILL MEDICATE ACCORDING TO EMAR.
[2019-06-20 10:42] LABS: LIPASE 2465 IU/L (73-393)
--- NOTE | 2019-06-20 10:45 | NUR ---
ENDORSE TO NURSE CASEY
--- NOTE | 2019-06-20 11:00 | NUR ---
RECEIVED PT FROM GAVIN CROW. PT AA/OX4, LAYING IN BED. DENIES ABD. PAIN AT THIS TIME. NO S/S OF ACUTE DISTRESS. DENIES N/V. NO SOB ON ROOM AIR. IV WNL TO RIGHT WRIST PATENT AND FLUSHES WELL. IVF FLOWING. NO DIZZINESS. NO SWEATING NOTED. TREMOR NOTED. NO ROWAN. INSTRUCTED TO USE CALL LIGHT TO CALL FOR ASSISTANCE PRN. PT VERBALIZED UNDERSTANDING. NPO EXCEPT MEDS. BED IN LOW POSITION. CALL LIGHT WITHIN REACH. WILL CONT. TO MONITOR.
--- NOTE | 2019-06-20 17:10 | NUR ---
PT BP ELEVATED, NSR ON TELE. GIVEN IV BP MED, SEE MAR. NSR ON TELE AFTER IV MEDICATION. NO CHEST PAIN. NO ROWAN. NO DIZZINESS. AA/OX4. LAYING IN BED. PT CALM/COOPERATIVE. IV WNL, IVF FLOWING. BED IN LOW POSITION. CALL LIGHT WITHIN REACH. WILL CONT. TO MONITOR.
--- NOTE | 2019-06-20 18:13 | NUR ---
BP 170/84 (112), HR 85. PHYSICIAN AWARE. AWAITING NEW ORDERS. PT DENIES CHEST PAIN. NO SOB ON ROOM AIR. NO S/S OF ACUTE DISTRESS. NO N/V. CALM/COOPERATIVE. DENIES PAIN AT THIS TIME. IV WNL TO RFA, IVF FLOWING. BED IN LOW POSITION. CALL LIGHT WITHIN REACH. WILL CONT. TO MONITOR.
--- NOTE | 2019-06-20 18:46 | NUR ---
BP 153/89. DECREASING WITHOUT ADDITIONAL BP MED. NO CHEST PAIN. NO C/O PAIN. NO SOB ON ROOM AIR. CALM/COOPERATIVE. IV WNL, IVF FLOWING. AT BEDSIDE. NO CHEST PAIN. BED IN LOW POSITION. CALL LIGHT WITHIN REACH. WILL ENDORSE TO ONCOMING SHIFT.
--- NOTE | 2019-06-20 19:15 | NUR ---
PT RECEIVED A/O X4, ABLE TO MAKE NEEDS KNOWN. SPOUSE AT BEDSIDE. TELE #4, PT DENIES HAVING ANY CP/PRESSURE. PULSES PALPABLE, NO EDEMA PRESENT. BREATHING IS EVEN AND UNLABORED ON RA, NO RESP DISTRESS NOTED. ABD SOFT AND NONDISTENDED, DENIES N/V. VOIDS FREELY, BRP. MILD GENERALIZED WEAKNESS, AMBULATORY WITH STEADY GAIT, PT USES CANE BASELINE. SKIN IS WARM AND DRY, INTACT. PT DENIES HAVING ANY PAIN AT THIS TIME. NO ACUTE DISTRESS NOTED. IVF INFUSING WELL TO RW, SITE WNL. BED IN LOWEST SETTING, SIDE RAILS UP X2, CALL LIGHT WITHIN REACH. WILL CONT TO MONITOR.
--- NOTE | 2019-06-20 21:43 | NUR ---
PT C/O 10/10 ABD PAIN, PRN MORPHINE IVP GIVEN ORDERED. NO ACUTE DISTRESS NOTED. WILL CONT TO MONITOR.
--- NOTE | 2019-06-20 22:20 | NUR ---
PT AND PT'S SPOUSE REFUSING SCHEDULED DOSE OF LAMICTAL. PT'S SPOUSE CONCERNED OF SIDE EFFECTS OF MEDICATION AND REQUESTING TO SPEAK WITH PHYSICIAN. EDUCATED PT ON S/S OF MEDICATION, PT AND SPOUSE INSISTENT ABOUT SPEAKING WITH PHYSICIAN. DR ZARAGOZA MADE AWARE, PER RESIDENT, WILL ENDORSE TO DAY TEAM.
--- NOTE | 2019-06-21 04:44 | NUR ---
PT SLEPT WELL THROUGHOUT THE EVENING. BREATHING IS EVEN AND UNLABORED, NO RESP DISTRESS NOTED. NO S/S OF PAIN OBSERVED AT THIS TIME. IVF INFUSING WELL, SITE WNL. NO ACUTE CHANGES ENCOUNTERED DURING SHIFT. ALL NEEDS MET AND ANTICIPATED. SPOUSE AT BEDSIDE. CALL LIGHT WITHIN REACH. WILL ENDORSE CARE TO AM NURSE.
[2019-06-21 05:28] VITALS: BP 160/90
--- NOTE | 2019-06-21 06:50 | NUR ---
PT C/O 10/10 ABD PAIN, PRN MORPHINE GIVEN ORDERED. PT AND PT'S SPOUSE REQUESTING TO SPEAK WITH PHYSICIAN, DR BREWSTER CALLED AND MADE AWARE. PER DR BREWSTER, WILL NOTIFY PT'S RESIDENT. WILL ENDORSE CARE TO AM NURSE.
[2019-06-21 07:31] LABS: BASOPHIL % 0.5 % (0-2); PLATELET COUNT 233 x10^3mcL (130-400)
[2019-06-21 07:49] LABS: RED CELL DISTRIBUTION WIDTH 14.7 % (11.5-14.5)
[2019-06-21 07:57] LABS: CALCIUM 9.3 mg/dL (8.5-10.1); CARBON DIOXIDE 24.7 mmol/L (21-32); CHLORIDE SERUM 98 mmol/L (98-107); CREATININE SERUM 1.1 mg/dL (0.7-1.3); GFR1 > 60 mL/min; GLUCOSE SERUM 223 mg/dL (74-106); POTASSIUM SERUM 3.1 mmol/L (3.5-5.1); SODIUM SERUM 135 mmol/L (136-145)
[2019-06-21 07:59] LABS: LIPASE 1961 IU/L (73-393)
--- NOTE | 2019-06-21 08:12 | NUR ---
RECEIVED PATIENT FROM GAVIN GREGORY I. PATIENT OBSERVED SEATED UP TO BED, EATING AND TOLERATING BREAKFAST TRAY. AT BEDSIDE AND UPSET FROM LAST NIGHT THAT SHE WAS UNABLE TO SPEAK WITH UNIT CONTROL CLERK RESIDENT. STATES THAT SHE WANTS AN EXPLAINATION TO WAY PATIENT IS NOW PRESCRIBED LAMICTAL. LOST CHARGE CARD CLERK MACKENZIE IN TO SPEAK WITH BUT CONTINUES TO BE UPSET. RACHEL MANN STATES SHE WILL INFORM DR ZACARIAS TO SPEAK WITH HER HE WAS THE ATTENDING PHYSICIAN LAST NIGHT ALONG WITH DR ZARAGOZA. CALL LIGHT IN REACH AT THIS TIME.
[2019-06-21 08:30] VITALS: BP 149/71
--- NOTE | 2019-06-21 12:05 | NUR ---
DR ZACARIAS IN TO SPEAK WITH PATIENT AND FAMILY. STATES THAT PATIENT MAY BE DISCHARGED TOMORROW DEPENDING ON HOW PATIENT TOLERATES DIET WELL LIPASE LEVELS. STATES THE LIPASE LEVELS WITH GRADUALLY DECREASE OVER TIME. PATIENT AND AGREE WITH PLAN. CALL LIGHT IN REACH.
[2019-06-21 13:02] VITALS: BP 170/85
[2019-06-21 17:03] VITALS: BP 144/80
--- NOTE | 2019-06-21 17:26 | NUR ---
PATIENT SEATED UP TO BED. NO COMPLAINTS AT THIS TIME. WILL CONTINUE TO MONITOR HOW PATIENT WILL TOLERATE DINNER TONIGHT. CALL LIGHT IN REACH.
--- NOTE | 2019-06-21 19:00 | NUR ---
PATIENT SEATED AT BEDSIDE, STATES THAT HE STILL HAS MODERATE STOMACH PAIN. PRN MORPHINE 2 MG IV GIVEN. WILL ENDORSE TO ONCOMING NURSE, CALL LIGHT IN REACH. AT BEDSIDE.
--- NOTE | 2019-06-21 19:20 | NUR ---
PT RECEIVED A/O X4, ABLE TO MAKE NEEDS KNOWN. SPOUSE AT BEDSIDE. TELE #4, PT DENIES HAVING ANY CP/PRESSURE. PULSES PALPABLE, NO EDEMA PRESENT. BREATHING IS EVEN AND UNLABORED ON RA, NO RESP DISTRESS NOTED. ABD SOFT AND ROUND, DENIES N/V. VOIDS FREELY, BRP. MILD GENERALIZED WEAKNESS, AMBULATORY WITH STEADY GAIT, PT USES CANE BASELINE. SKIN IS WARM AND DRY, INTACT. PT DENIES HAVING ANY PAIN AT THIS TIME. NO ACUTE DISTRESS NOTED. IVF INFUSING WELL TO RW, SITE WNL. BED IN LOWEST SETTING, SIDE RAILS UP X2, CALL LIGHT WITHIN REACH. WILL CONT TO MONITOR.
[2019-06-21 20:49] VITALS: BP 153/79
[2019-06-21 21:06] VITALS: BP 153/79
--- NOTE | 2019-06-22 01:18 | NUR ---
PT C/O 10/10 ABD PAIN, PRN MORPHINE IVP GIVEN ORDERED. NO ACUTE DISTRESS NOTED. WILL CONT TO MONITOR.
[2019-06-22 05:38] VITALS: BP 128/77
--- NOTE | 2019-06-22 06:30 | NUR ---
PT SLEPT WELL THROUGHOUT THE EVENING. SPOUSE AT BEDSIDE. BREATHING IS EVEN AND UNLABORED, NO RESP DISTRESS NOTED. PT C/O 04/12 ABD PAIN, PRN MORPHINE IVP GIVEN ORDERED. IVF INFUSING WELL TO , SITE WNL. NO ACUTE CHANGES ENCOUNTERED DURING SHIFT. ALL NEEDS MET AND ANTICIPATED. CALL LIGHT WITHIN REACH. WILL ENDORSE CARE TO AM NURSE.
--- NOTE | 2019-06-22 07:05 | NUR ---
RECIEVED PT RESTING IN BED WITH NO C/O PAIN OR DISTRESS. AT BEDSIDE. A/OX4 WITH NO ROWAN OR DIZZINESS. TELE#4 CONNECTED TO PT, DENIES ANY CP OR PRESSURE. PT ON RA WITH NO SOB NOTED. D5-45%NS 80ML/HR RUNNING IN LH, CDI AND PATENT. MD AWARE OF PT POTASSIUM LEVEL, COVERAGE GIVEN PER EMAR. SAFETY PRECAUTIONS IN PLACE, CALL LIGHT WITHIN REACH, WILL MONITOR.
[2019-06-22 07:33] LABS: BASOPHIL % 0.5 % (0-2); PLATELET COUNT 234 x10^3mcL (130-400)
[2019-06-22 07:45] LABS: RED CELL DISTRIBUTION WIDTH 15.2 % (11.5-14.5)
[2019-06-22 07:47] LABS: MAGNESIUM 1.9 mg/dL (1.8-2.4); PHOSPHOROUS 2.7 mg/dL (2.5-4.9)
[2019-06-22 07:50] LABS: ALKALINE PHOSPHATASE 74 U/L (46-116); ALT/SGPT 31 U/L (16-63); AST/SGOT 23 U/L (15-37); BILIRUBIN TOTAL 0.83 mg/dL (0.20-1.00); CALCIUM 9.2 mg/dL (8.5-10.1); CARBON DIOXIDE 26.7 mmol/L (21-32); CHLORIDE SERUM 98 mmol/L (98-107); CREATININE SERUM 1.2 mg/dL (0.7-1.3); GFR1 > 60 mL/min; GLUCOSE SERUM 228 mg/dL (74-106); SODIUM SERUM 134 mmol/L (136-145); TOTAL PROTEIN, SERUM 7.2 g/dL (6.4-8.2)
[2019-06-22 07:56] LABS: ALBUMIN 2.8 g/dL (3.4-5.0)
[2019-06-22 09:10] VITALS: BP 154/79
[2019-06-22 10:49] VITALS: BP 154/79
[2019-06-22] MEDS ORDERED: NIC7 TD (11:25)
[2019-06-22] MEDS ORDERED: COR6 PO ×2 (11:27→12:59)
[2019-06-22] MEDS ORDERED: LAM100 PO ×2 (11:28→12:59)
[2019-06-22] MEDS ORDERED: NOR10 PO ×2 (11:28→12:59)
[2019-06-22] MEDS ORDERED: ULTRAM50 MG PO ×2 (11:46→12:59)
--- NOTE | 2019-06-22 11:48 | NUR ---
MORPHINE GIVEN PER EMAR FOR C/O 9/10 ABD PAIN, WILL REASSESS.
[2019-06-22] MEDS ORDERED: HYD25 PO (12:59)
[2019-06-22] MEDS ORDERED: HYDROCHLOROTHIA25 MG PO (12:59)
--- NOTE | 2019-06-22 13:09 | NUR ---
PT STABLE TO DISCHARGE PER MD ORDER. NO PAIN OR DISTRESS NOTED. VS WNL. ALL DISCHARGE INSTRUCTIONS, EDUCATION, AND PRESCRIPTIONS EXPLAINED/GIVEN TO PT AND , BOTH VERBALIZE UNDERSTANDING. IV REMOVED WITH CATHETER INTACT, SITE FREE OF ANY REDNESS OR INFLAMMATION. TELE BOX RETURNED TO WI. PT ESCORTED DOWN TO LOBBY BY ENGINEER SERGEANT AND , ALL PERSONAL BELONGINGS IN HAND.
== END 2019-06-22 13:08 | disposition home or self-care (01) | DRG 282 ==
LOC: ED 14:24 → DU 18:29
PROVIDERS: Specialist; ADMIT Family Medicine
DX: K85.90 Acute pancreatitis without necrosis or infection, unspecified (principal); E44.0 Moderate protein-calorie malnutrition; F25.0 Schizoaffective disorder, bipolar type; E11.65 Type 2 diabetes mellitus with hyperglycemia; T42.6X5A Adverse effect of other antiepileptic and sedative-hypnotic drugs, initial encounter; I10 Essential (primary) hypertension; I25.10 Atherosclerotic heart disease of native coronary artery without angina pectoris; F17.210 Nicotine dependence, cigarettes, uncomplicated; Z68.29 Body mass index [BMI] 29.0-29.9, adult; Z95.5 Presence of coronary angioplasty implant and graft; Z79.84 Long term (current) use of oral hypoglycemic drugs; Y92.018 Other place in single-family (private) house as the place of occurrence of the external cause; I16.0 Hypertensive urgency
CPT/HCPCS: 82962; 90658; 90732; 99406; G0378; G0480; J0360; J1885; J2270; J3475; J3490; J7030; J7042; Q0092